=== PATIENT | female | born 1940 | race Caucasian/White ===

== ENCOUNTER 2020-06-07 15:08 | Emergency (ER) | payer MEDICARE, SELFPAY ==
[2020-06-07 15:24] VITALS: BP 164/89; PULSE 87; RESP 18; TEMP 36.3; O2SAT 99
--- NOTE | 2020-06-07 15:40 | ED.SKABFB ---
HPI - Skin/Abscess/Foreign Bdy General Chief complaint: Skin/Abscess/Foreign Body Stated complaint: rash face/numb Source: patient and RN notes reviewed Limitations: no limitations History of Present Illness HPI narrative: The patient, previously on several meds, presents with skin eruption. Patient states she been seen by dermatology in the past for removal of probable actinic keratosis along her maxilla. She now complains of a couple week history of itchy, pink scattered , mostly flat eruption on her right cheek going across her nasal bridge. 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 Symptoms are mild, worse with scratching;patient advised to follow-up with her city secretary. Related Data Home Medications Medication Instructions Recorded Confirmed clonazepam 1 mg TID PRN 06/07/20 06/07/20 pantoprazole 40 mg PO DAILY 06/07/20 06/07/20 paroxetine HCl 20 mg PO DAILY 06/07/20 06/07/20 simvastatin 40 mg DAILY 06/07/20 06/07/20 Allergies Allergy/AdvReac Type Severity Reaction Status Date / Time cefaclor Allergy Mild Verified 02/11/16 15:30 itraconazole Allergy Mild Verified 02/11/16 15:30 Penicillins Allergy Mild Verified 02/11/16 15:30 Sulfa (Sulfonamide Allergy Mild Verified 02/11/16 15:30 Antibiotics) peanut Allergy Unknown Verified 02/11/16 15:30 TERBINAFINE HCL Allergy Mild Uncoded 02/11/16 15:30 Review of Systems Review of Systems: Narrative: General/Constitutional: No weight loss,fever Eyes: N0: Redness, reports discharge Ears/Nose/Throat: No: Epistaxis,ear discharge Respiratory: Denies: Hemoptysis Gastrointestinal: No Vomiting, Bleeding-rectal Skin: No Lumps, REPORTS eruption Neurologic: No Focal Weakness,Sz Hematologic: Denies: Petechiae/Purpura Psychiatric: No: Suicida ideationl All Other Systems: Reviewed and Negative [facility] Social History Social History Gender identity (if verbalized by the patient): Female Exam Narrative: Exam Narrative: General Appearance: Well appearing, Conjunctiva clear Ears: External ear normal Skin: Warm, Dry; small pink essentially macules on nasal bridge, and right ZMC Nose: Normal nose,small developing AK at right, nasojugal groove Mouth/Throat: Normal appearing, Normal lips: Supple Respiratory: Airway patent, No respiratory distress Musculoskeletal: Full ROM Neurological: A&O x3, Normal affect Course Vital Signs Vital signs: Vital Signs Temperature 97.4 F L 06/07/20 15:24 Pulse Rate 87 06/07/20 15:24 Respiratory Rate 18 06/07/20 15:24 Blood Pressure 164/89 H 06/07/20 15:24 Pulse Oximetry 99 06/07/20 15:24 Temperature 97.4 F L 06/07/20 15:24 Pulse Rate 87 06/07/20 15:24 Respiratory Rate 18 06/07/20 15:24 Blood Pressure 164/89 H 06/07/20 15:24 Pulse Oximetry 99 06/07/20 15:24 Discharge Plan Discharge Clinical Impression: Folliculitis, Actinic keratosis, hx of, Pruritic condition Patient Disposition: Home, Self-Care Condition: Stable Instructions: Folliculitis (ED) Additional Instructions: See your prior city secretary as discussed Prescriptions: New doxycycline monohydrate 100 mg capsule 100 mg PO BID Qty: 14 RF: 0 No Action simvastatin 40 mg tablet 40 mg DAILY RF: 0 paroxetine HCl 20 mg tablet 20 mg PO DAILY RF: 0 pantoprazole 40 mg tablet,delayed release (DR/EC) 40 mg PO DAILY RF: 0 clonazepam 1 mg tablet 1 mg TID PRN (Reason: Anxiety) RF: 0 Follow-up/Referrals: UNKNOWN,DOCTOR [Primary Care Provider] -
== END 2020-06-07 15:53 | disposition home or self-care (01) ==
PROVIDERS: Emergency Provider Emergency Medicine
DX: L73.9 Follicular disorder, unspecified (principal); L57.0 Actinic keratosis
CPT/HCPCS: 99213; G0463

== ENCOUNTER 2020-12-13 17:20 | IRF | payer MEDICARE, SELFPAY ==
--- NOTE | ~2020-12-13 | CT_ITS ---
EXAMINATION: CT abdomen pelvis wo con DATE: 12/13/2020 21:07 INDICATION: Abnormal KUB and left lower quadrant abdominal pain. TECHNIQUE: Computed tomography (CT) of the abdomen and pelvis was performed without intravenous contr ast. Automated exposure control and iterative reconstruction technique were employed. The dose-length product was 321.00 mGy-cm. COMPARISON: KUB dated 12/13/2020 FINDINGS: Mild elevation of the right hemidiaphragm. Mild discoid atelectasis in the right middle lobe and ling pedro pablo and mild dependent atelectasis in the bilateral lower lobes. Tiny left pleural effusion. Heart si ze is normal. Atherosclerotic coronary artery calcific lesion. No pericardial effusion or pneumoperic ardium. There is pneumomediastinum primarily in the nondependent upper abdomen a portion of which loc ated into the left hepatic lobe accounts for the abnormal lucency seen on the prior KUB. This likely related to percutaneous gastrostomy tube placement the bulb which is located within the body of the s tomach which was reportedly placed 3 days prior. Liver, gallbladder, spleen, pancreas and bilateral a drenal glands are normal. At least partially obstructing 1.4 cm stone at the right ureteropelvic junc tion with mild right hydronephrosis. 2.3 cm cyst at the upper pole of the left kidney. No other uroli thiasis. Normal appendix. Marked sigmoid diverticulosis without adjacent from 3 change to suggest div erticulitis. No bowel obstruction. There is calcified atherosclerosis of the aorta and many of the ot her arteries. Bladder is normal. The uterus is not identified and has likely been surgically resected . Small nodular density in the subcutaneous fat at the left anterior pelvic wall likely representing an injection granuloma with additional small foci of mild stranding and subcutaneous gas likely relat ed to more recent injections. Mild thoracolumbar levocurvature. Moderate to severe lumbar spondylosis . IMPRESSION: 1. Small amount of free intraperitoneal gas likely related to reported recent placement of a percutan eous gastrostomy tube which constitute the abnormal lucency on the prior radiographs. 2. 1.4 cm at least partially obstructing stone at the right ureterovesicular junction with mild right hydronephrosis. 3. Marked sigmoid diverticulosis.. Reviewed, dictated and finalized at location A. IMPRESSION: 1. Small amount of free intraperitoneal gas likely related to reported recent p lacement of a percutaneous gastrostomy tube which constitute the abnormal lucen cy on the prior radiographs. 2. 1.4 cm at least partially obstructing stone at the right ureterovesicular ju nction with mild right hydronephrosis. 3. Marked sigmoid diverticulosis..
--- NOTE | ~2020-12-13 | XR_ITS ---
EXAMINATION: XR UGI water soluble wo kub EXAM DATE: 12/15/2020 11:39 INDICATION: Thru g-tube, document position of gastrostomy tube. TECHNIQUE: Omnipaque 350 upper GI examination was performed by radiologist Ilya Van M.D. through g astrostomy tube in place on patient arrival. Pulsed dose reduction fluoroscopy was used with fluorosc opic time of 0.2. The DAP for this procedure was 0.9 Gycm2. A total of 34 images obtained for the e xam. Total of 200 mL Omnipaque 350 solution injected. FINDINGS: Gastrostomy tube balloon anchor inflated with radiodense liquid seen on the barrel lathe operator outside image. 20 0 mL contrast was injected. A balloon is confirmed in the gastric body. Moderate amount of reflux was demonstrated during the examination. No stomach contour abnormality demonstrated. Jejunal fold patte rn was normal. IMPRESSION: 1. Gastrostomy tube in position. 2. Moderate gastroesophageal reflux. Reviewed, dictated and finalized at location A.
--- NOTE | ~2020-12-13 | XR_ITS ---
EXAMINATION: XR barium swallow modified EXAM DATE: 12/17/2020 10:39 INDICATION: Dysphagia. TECHNIQUE: Modified barium esophagram was performed by speech pathologist with radiologist Dr. Ilya Van present to administered fluoroscopy. Speech pathologist administered barium in varying consis tencies as per speech pathologist documentation. This was recorded on tape. There was total fluorosc opic time of 0.4. The DAP for this procedure was 0.2 Gycm2. A total of 1 images sent to PACS from t exam. FINDINGS: Oral stage: Delayed trigger. Pharyngeal phase: Reduced laryngeal closure, elevation. Laryngeal penetration: Demonstrated. Aspiration: Demonstrated. Laryngeal sensitivity: Absent. IMPRESSION: Aspiration demonstrated; nonoral feedings recommended. Reviewed, dictated and finalized at location A.
--- NOTE | ~2020-12-13 | XR_ITS ---
EXAMINATION: XR abdomen/kub 1V DATE: 12/13/2020 19:52 INDICATION: Left lower quadrant abdominal pain. TECHNIQUE: A supine view of the abdomen on 2 radiographs was obtained. COMPARISON: None. FINDINGS: Percutaneous gastrostomy tube bulb projects over the proximal body of the stomach. There are couple a djacent likely T-tack clips. 1.4 cm stone projecting over the region of the right ureteropelvic junct ion. No dilated loops of bowel to suggest obstruction. Vascular calcifications in the pelvis. Mild el evation of the right hemidiaphragm. There is an indeterminate crescentic region of lucency abutting t he inferior aspect of the heart which extends across the midline. Lung bases are otherwise clear. Hea rt size is normal. Mild thoracolumbar levoscoliosis with moderate lower lumbar spondylosis. IMPRESSION: 1. Indeterminate crescentic lucency projecting from left to right across the base of the heart which could represent pneumopericardium. Assess for further evaluation with either PA and lateral chest rad iograph or CT. Findings were discussed with Maria Luisa Estrada, the nurse caring for the patient, at 8:25 PM . 2. 1.4 cm right renal stone projecting over the right ureteropelvic junction. 3. Normal bowel gas pattern with percutaneous gastrostomy tube projecting over the proximal body of t he stomach. Reviewed, dictated and finalized at location A. IMPRESSION: 1. Indeterminate crescentic lucency projecting from left to right across the ba se of the heart which could represent pneumopericardium. Assess for further isis luation with either PA and lateral chest radiograph or CT. Findings were discus sed with Maria Luisa Estrada, the nurse caring for the patient, at 8:25 PM. 2. 1.4 cm right renal stone projecting over the right ureteropelvic junction. 3. Normal bowel gas pattern with percutaneous gastrostomy tube projecting over the proximal body of the stomach.
[2020-12-13 17:20] VITALS: BP 151/55; PULSE 88; RESP 18; TEMP 36.7; O2SAT 96; BMI 24.2
--- NOTE | 2020-12-13 18:23 | ADMGEN ---
Arrived via ambulance at 1720. No issues. This patient, Madeline Mcneil, was admitted to [facility] Room 223-02. Patient/family oriented to hospital policies and general routines including ID bracelet, bed and alarms, visiting hours, pain management, procedures, bathroom and other care routines, personal items, smoking policy, room service/diet, and visiting hours. Information on how to activate the Rapid Response Team has been discussed. Patient/Family are encouraged to report perceived risks to care and to ask questions if they do not understand what they are told or what they should do.
[2020-12-13] MEDS: HYDROcodone/acetaminophen (*CRX) 5-325 MG TABLET 1 TAB FEED TUBE (20:16)
[2020-12-13 20:30] VITALS: BMI 24.2
[2020-12-13] MEDS: CLINDAMYCIN HCL 150 MG CAP 300 MG FEED TUBE (21:41)
[2020-12-13 21:50] VITALS: BP 145/61; PULSE 88; RESP 18; TEMP 36.4; O2SAT 95
[2020-12-14 05:05] LABS: Basophils Absolute Auto 0.1 K/mm3 (0.0-0.1); Basophils Percent Auto 0.7 % (0.2-1.2); Eosinophils Absolute Auto 0.5 K/mm3 (0-0.3); Eosinophils Percent Auto 3.9 % (0-4.4); Hemoglobin 11.6 g/dL (12.0-15.0); Immature Granulocyte Absolute 0.09 K/mm3 (0.00-0.031); Immature Granulocyte Percent A 0.8 % (0-0.5); Lymphocytes Absolute Auto 0.92 K/mm3 (0.9-3.2); Lymphocytes Percent Auto 7.8 % (18.3-44.2); Mean Corpuscular HGB Conc 34.1 g/dl (32-36); Mean Corpuscular Hemoglobin 29.4 pg (26-34); Mean Corpuscular Volume 86.3 fl (80-100); Mean Platelet Volume 10.4 fl (7.4-10.4); Monocytes Absolute Auto 1.3 K/mm3 (0.1-0.6); Monocytes Percent Auto 11.2 % (2.6-8.5); Neutrophils Absolute Auto 8.9 K/mm3 (1.3-6.7); Neutrophils Percent Auto 75.6 % (45.5-73.1); Platelet Count Result 322 k/mm3 (150-375); Red Blood Count 3.94 M/mm3 (4.2-5.4); Red Cell Distribution Width 13.9 % (11.5-14.5); White Blood Count 11.7 K/mm3 (4.5-10.0)
[2020-12-14] MEDS: HYDROcodone/acetaminophen (*CRX) 5-325 MG TABLET 1 TAB FEED TUBE ×2 (05:08→14:53)
[2020-12-14 05:14] LABS: Alanine Aminotransferase 311 U/L (4-35); Albumin Level 3.1 g/dL (3.5-5.1); Alkaline Phosphatase 287 U/L (38-126); Anion Gap 8 mmol/L (8-16); Aspartate Amino Transferase 304 U/L (14-36); Bilirubin,Total 0.3 mg/dL (0.2-1.3); Blood Urea Nitrogen 23 mg/dL (7-17); Calcium 8.7 mg/dL (8.4-10.2); Carbon Dioxide 26 mmol/L (22-30); Chloride 100 mmol/L (98-107); Cholesterol 88 mg/dL (0-200); Estimated CRCL calculation 27 ml/min; Estimated Glomerular Filt Rate 43; Glucose 115 mg/dL (65-105); HDL Direct 23 mg/dL; Sodium 134 mmol/L (137-145); Triglycerides 118 mg/dL (<150)
[2020-12-14 05:25] LABS: LDL Cholesterol Direct 43 mg/dL
[2020-12-14 05:59] VITALS: BP 136/56; PULSE 80; RESP 18; TEMP 36.6; O2SAT 96
[2020-12-14] MEDS: CLINDAMYCIN HCL 150 MG CAP 300 MG FEED TUBE ×3 (06:11→23:04)
[2020-12-14] MEDS: LANSOPRAZOLE ORAL SUSP 30 MG/10 ML ORAL.SUSP FEED TUBE ×2 (06:17→18:17)
--- NOTE | 2020-12-14 09:10 | WPDNEURORHBP ---
Subjective Date/time seen: 12/14/20 09:10 Interval history: HISTORY OF PRESENT ILLNESS: The patient's primary rehab impairment category is 0 1 stroke The etiologic diagnosis is right MCA infarct I saw this patient [id number] on 12/14/2020 The patient is a 80-year-old female with prior medical history of multiple strokes consisting of left frontal ischemic stroke in 2018 on aspirin daily who had sudden onset of left facial droop, left-sided weakness and aphasia on 12/01/20. Patient was transferred to [facility] on 12/01/2020. Upon arrival patient's blood pressure was 156/87 and patient was tachycardic heart rate of 104. NIHSS was 12. Workup: CTA showed no LV 0 or hemodynamically significant stenosis. MRI of the brain demonstrated acute to subacute infarcts in the right frontal lobe which included the precentral gyrus in the right MCA territory. Most likely etiology is cardioembolic versus less likely thromboembolic. CT CAP demonstrate mild stranding around right ureter possibly ureteritis or periureteral hematoma. TTE was positive PFO with an ejection fraction of 61%.LE Doppler negative. Hospital course: The patient was bolused with tPA on 12/01/2020 and then transferred to [facility]. Patient was noted to have anam hematuria. The patient was started on ceftriaxone. Urine cultures showed no significant growth and antibiotics were discontinued. On 12/09/2020 patient developed aspiration pneumonia and was placed on clindamycin. On 12/07/2020 patient was placed with a G-tube due to dysphagia. Patient revealed left-sided weakness impaired balance and are 3 a and dysphagia. Patient was placed on atorvastatin and discontinued simvastatin. A loop recorder was placed prior to discharge. Patient required acute rehabilitation COVID negative on 12/13/2020. Patient did not travel outside the [place] or had contact with anyone with COVID. Patient presented with no signs or symptoms of COVID. Therapy was initiated at the acute care facility and the patient transferred to us from [facility] on 12/13/2020 FALLS OR SURGERIES: The patient has had a G tube placed during this admission.She had [no] falls in the past year. PRIOR LEVEL OF FUNCTION: Eating was [INDEPENDENT] Oral Care was [INDEPENDENT] Toileting Hygiene was [INDEPENDENT] Shower/Bathing was [INDEPENDENT] Upper Body Dressing was [INDEPENDENT] Lower Body Dressing was [INDEPENDENT] Donning/[place]irie Footwear was [INDEPENDENT] Rolling Left and Right was [INDEPENDENT] Sit to Lying was [INDEPENDENT] Lying to Sitting was [INDEPENDENT] Sit to Stand was [INDEPENDENT] Bed to Chair Transfers was [INDEPENDENT] Toilet Transfers was [INDEPENDENT] Walking was [INDEPENDENT] [>500 feet] with [NO DEVICE] Wheelchair Mobility was [NOT APPLICABLE PRIOR TO ADMISSION] Stairs were [INDEPENDENT] CURRENT LEVEL OF FUNCTION: Eating was Dependent Oral Care was independent Toileting Hygiene was partial to mod assist Shower/Bathing was partial to mod assist Upper Body Dressing was supervision or touching assistance Lower Body Dressing was partial to mod assist Donning/[place] Footwear was partial to mod assist Rolling Left and Right was supervision or touching his Sit to Lying was supervision or touching assistance Lying to Sitting was supervision or touching assistance Sit to Stand was partial to moderate assist Bed to Chair Transfers were partial to moderate assist Toilet Transfers were partial to moderate assist Walking was 90 ft with partial to moderate assist without device Wheelchair Mobility was not tested Stairs were not tested patient is alert and oriented x3 with global aphasia. Patient follows one-step commands consistently. Right gaze preference and cues required to attend to left side. GOALS: Our therapists will evaluate the patient and establish the goals. However, upon pre-admission screening, the expected goals were to
[2020-12-14] MEDS: ASPIRIN 325 MG TABLET FEED TUBE (10:01)
[2020-12-14] MEDS: ATORVASTATIN 40 MG TABLET FEED TUBE (10:01)
[2020-12-14] MEDS: amLODIPine BESYLATE 2.5 MG TABLET FEED TUBE (10:01)
[2020-12-14] MEDS: FLUoxetine HCL 10 MG CAPSULE FEED TUBE (10:02)
[2020-12-14] MEDS: MULTIVIT W/ IRON, MINERALS 15 ML LIQUID (*BKC) FEED TUBE (10:02)
[2020-12-14 11:34] VITALS: BMI 24.2
[2020-12-14 12:03] LABS: Glucose Point of Care 136 mg/dl (65-105)
--- NOTE | 2020-12-14 12:33 | WPDREHABHP ---
H&P: HPI History of Present Illness Date/Time: 12/14/20 12:33 Chief Complaint: CVA Narrative: Date/time seen: 12/14/20 09:10 Interval history: HISTORY OF PRESENT ILLNESS: The patient's primary rehab impairment category is 0 1 stroke The etiologic diagnosis is right MCA infarct I saw this patient [id number] on 12/14/2020 The patient is a 80-year-old female with prior medical history of multiple strokes consisting of left frontal ischemic stroke in 2018 on aspirin daily who had sudden onset of left facial droop, left-sided weakness and aphasia on 12/01/20. Patient was transferred to [facility] on 12/01/2020. Upon arrival patient's blood pressure was 156/87 and patient was tachycardic heart rate of 104. NIHSS was 12. Workup: CTA showed no LV 0 or hemodynamically significant stenosis. MRI of the brain demonstrated acute to subacute infarcts in the right frontal lobe which included the precentral gyrus in the right MCA territory. Most likely etiology is cardioembolic versus less likely thromboembolic. CT CAP demonstrate mild stranding around right ureter possibly ureteritis or periureteral hematoma. TTE was positive PFO with an ejection fraction of 61%.LE Doppler negative. Hospital course: The patient was bolused with tPA on 12/01/2020 and then transferred to [facility]. Patient was noted to have anam hematuria. The patient was started on ceftriaxone. Urine cultures showed no significant growth and antibiotics were discontinued. On 12/09/2020 patient developed aspiration pneumonia and was placed on clindamycin. On 12/07/2020 patient was placed with a G-tube due to dysphagia. Patient revealed left-sided weakness impaired balance and are 3 a and dysphagia. Patient was placed on atorvastatin and discontinued simvastatin. A loop recorder was placed prior to discharge. Patient required acute rehabilitation COVID negative on 12/13/2020. Patient did not travel outside the [place] or had contact with anyone with COVID. Patient presented with no signs or symptoms of COVID. Therapy was initiated at the acute care facility and the patient transferred to us from [facility] on 12/13/2020 FALLS OR SURGERIES: The patient has had a G tube placed during this admission.She had [no] falls in the past year. PRIOR LEVEL OF FUNCTION: Eating was [INDEPENDENT] Oral Care was [INDEPENDENT] Toileting Hygiene was [INDEPENDENT] Shower/Bathing was [INDEPENDENT] Upper Body Dressing was [INDEPENDENT] Lower Body Dressing was [INDEPENDENT] Donning/[place] Footwear was [INDEPENDENT] Rolling Left and Right was [INDEPENDENT] Sit to Lying was [INDEPENDENT] Lying to Sitting was [INDEPENDENT] Sit to Stand was [INDEPENDENT] Bed to Chair Transfers was [INDEPENDENT] Toilet Transfers was [INDEPENDENT] Walking was [INDEPENDENT] [>500 feet] with [NO DEVICE] Wheelchair Mobility was [NOT APPLICABLE PRIOR TO ADMISSION] Stairs were [INDEPENDENT] CURRENT LEVEL OF FUNCTION: Eating was Dependent Oral Care was independent Toileting Hygiene was partial to mod assist Shower/Bathing was partial to mod assist Upper Body Dressing was supervision or touching assistance Lower Body Dressing was partial to mod assist Donning/[place] Footwear was partial to mod assist Rolling Left and Right was supervision or touching his Sit to Lying was supervision or touching assistance Lying to Sitting was supervision or touching assistance Sit to Stand was partial to moderate assist Bed to Chair Transfers were partial to moderate assist Toilet Transfers were partial to moderate assist Walking was 90 ft with partial to moderate assist without device Wheelchair Mobility was not tested Stairs were not tested patient is alert and oriented x3 with global aphasia. Patient follows one-step commands consistently. Right gaze preference and cues required to attend to left side. GOALS: Our therapists will evaluate the patient and es
[2020-12-14 14:00] VITALS: BP 131/59; PULSE 84; RESP 18; TEMP 36.1; O2SAT 97
--- NOTE | 2020-12-14 14:31 | RPD ---
INDIVIDUALIZED PLAN OF CARE FOR Madeline Mcneil Brief Synthesis of Pre-Admission Screen, Post-Admission Evaluation and Therapy Evaluations: The patient presents to rehab with a right MCA infarct. Comorbidities include stage 3 chronic kidney disease, hyperparathyroidism due to renal insufficiency, hypertension, recurrent major depression, vitamin D deficiency, nephrolithiasis, hypercalcemia, abnormal UA, spinal stenosis, proteinuria, left facial droop, left sided weakness, aphasia, SOB, and pain. The complexity of the patient's medical management, nursing, and therapy needs require an inpatient rehab hospital stay with a physician-led interdisciplinary team approach. The patient?s needs will be best met in an intensive program vs. at a lower level of care. The patient requires physician services for medical oversight, and coordination of care. Emotional needs will be monitored as depression is a common sequelae of stroke. The patient needs physician monitoring and treatment of tachycardia, hypertension, monitoring for adverse reactions to new medications, monitoring of infection, and pain control. The patient requires nursing services for frequent neuro checks, anticoagulation therapy, medication management and education, pressure relief and skin care management, monitoring of labs, G-tube feeding, and fall/safety precautions. Deficits include:ADLs, Balance, Endurance, Family Training/Education, Mobility, Pain Management, ROM, Safety, Speech, Strength, Swallowing, and Transfers. Director Loss Prevention/Case Management for: Discharge Planning and Patient/Family Counseling Physical Therapy: 5 days per week for 60 minutes. Treatments may include: Therapeutic Exercise, Gait Training, Neuromuscular Re-education, Transfer Training, Community Reintegration, Bed Mobility, Patient/Family Education, Wheelchair Mobility Group Therapy/Concurrent Therapy Rationales: -Improve attention span during functional activities in a distracted environment. -Enhance problem solving and/or adequate judgment skills during functional activities in a distracted environment. -Promote increased safety awareness in a distracted environment to reduce fall risk with functional tasks, transfers, and ambulation to allow a more safe, self-sufficient return to the home environment. -Improve dynamic balance skills to promote safety and independence with functional activities in a distracted environment for maximum gain. Occupational Therapy: 5 days per week for 60 minutes. Treatments may include: Therapeutic Exercise, Therapeutic Activity, Cognitive Training, Self-Care Transfer Training, Community Reintegration, Home Management, Patient/Family Education, Wheelchair Mobility Training, Energy Conservation Training Group Therapy/Concurrent Therapy Rationales: -Allow therapist to observe and teach generalization and carry-over of skills learned in individual therapy. -Enhance problem solving and sequencing skills during therapeutic activities in a distracted environment. -Promote increased safety awareness in a realistic setting to reduce fall risk with functional tasks due to visual and verbal distractions. -Increase functional level with ADLs, ADL transfers and use of adaptive equipment through therapeutic activities with others while promoting safety to allow a more safe, self-sufficient return home. Speech Therapy: 5 days per week for 60 minutes. Treatments may include: Dysphasia Therapy, Speech/Language/Communication Therapy, Cognitive Training, Patient/Family Education Group Therapy/Concurrent Therapy - Rationale: -Allow therapist to observe and teach generalization and carry-over of skills learned in individual therapy. -Improve comprehension skills with complex or abstract ideas through discussion in a realistic setting. -Enhance problem solving skills with complex issues during activities in a distracted environment. -Promote increased memory skills and concentration in a distracted environment for a safe t
[2020-12-14 21:55] VITALS: BP 144/57; PULSE 79; RESP 16; TEMP 36.9; O2SAT 97
[2020-12-15] MEDS: LANSOPRAZOLE ORAL SUSP 30 MG/10 ML ORAL.SUSP FEED TUBE ×2 (05:00→16:52)
[2020-12-15 05:42] VITALS: BP 152/71; PULSE 92; RESP 18; TEMP 37; O2SAT 96
[2020-12-15 06:42] LABS: Glucose Point of Care 111 mg/dl (65-105)
[2020-12-15] MEDS: MULTIVIT W/ IRON, MINERALS 15 ML LIQUID (*BKC) FEED TUBE (08:03)
[2020-12-15] MEDS: FLUoxetine HCL 10 MG CAPSULE FEED TUBE (08:04)
[2020-12-15] MEDS: ATORVASTATIN 40 MG TABLET FEED TUBE (08:04)
[2020-12-15] MEDS: amLODIPine BESYLATE 2.5 MG TABLET FEED TUBE (08:04)
[2020-12-15] MEDS: HYDROcodone/acetaminophen (*CRX) 5-325 MG TABLET 1 TAB FEED TUBE ×3 (08:04→23:50)
[2020-12-15] MEDS: ASPIRIN 325 MG TABLET FEED TUBE (08:04)
--- NOTE | 2020-12-15 11:03 | WPDGICN ---
Assessment and Plan Assessment and plan (1) G tube feedings: Code(s): Z93.1 - Gastrostomy status Status: Acute (2) Gastrostomy, acute management: Code(s): Z43.1 - Encounter for attention to gastrostomy Status: Acute Assessment and Plan: Patient has pain after gastrostomy tube was placed 1 week ago at [facility] Radiology Department. Old records are reviewed. It appears that the 2 button - like sutures are self absorbing and will dissolve in time on their own. Patient does have an additional suture that keeps the external bumper of the G-tube in place. There is a 10cc internal bumper described. The CT scan performed at our institution reveals some evidence of free air. This is likely related to the procedure. But a Gastrografin study through the G-tube will be obtained to document that it is in good position. The G-tube itself should remain in place for several months if at all possible and would be hesitant to replace it in the initial 2 months. This would be to allow fistula tract to form between the skin in the stomach itself. Patient may have some tenderness at the suture retaining the external bumper period and this should initially be treated conservatively thank (3) Aphasia complicating stroke: Status: Acute (4) Dysphagia: Code(s): R13.10 - Dysphagia, unspecified Status: Acute (5) Abdominal pain: Code(s): R10.9 - Unspecified abdominal pain Status: Acute (6) CVA (cerebral vascular accident): Code(s): I63.9 - Cerebral infarction, unspecified Status: Acute GI Consult Note Consult date/time: 12/15/20 11:03 HPI: Madeline Mcneil is a 80 year old female I am asked to see at the request of the rehab service. Patient has a history of recent CVA. She has had multiple prior strokes. Most recent stroke includes is sudden onset of left-sided weakness and facial droop along with aphasia that began on 12/01/2020. Patient was transferred to [facility] in treated with tPA. She continued to have difficulty swallowing and G-tube was placed through the Radiology Department on 12/07/2020. Patient subsequently complains of pain at the G-tube site. This was noted on discharge papers from [facility] period and continues at our institution. The tube functions properly. However patient notices discomfort at this area. A CT scan was performed at [facility] with free air noted attributed to this recent procedure. Small kidney stone was identified as well. Review of Systems Review of Systems: All systems reviewed & are unremarkable except as noted in HPI and below PMFSH Past Medical History Medical History (Updated 12/15/20 @ 11:08 by Naif Decker MD) CVA (cerebral vascular accident) Depression Hypercalcemia Hyperparathyroidism due to renal insufficiency Hypertension Nephrolithiasis Spinal stenosis Stage III chronic kidney disease Vitamin D deficiency Surgical History Surgical History (Updated 12/14/20 @ 12:37 by Lili Sanford DO) G tube feedings Family History Family History (Updated 12/13/20 @ 20:54 by Dmitriy Pearce RN) Sibling Cystic fibrosis Father Colon cancer Mother Dementia Ovarian cancer Social History Social History (Updated 12/14/20 @ 12:38 by Lili Sanford DO) Social History: patient lives with her spouse in a 1 level home with a basement. There are 5 steps to enter. The patient was completely prior to admission with no assistive device. The the is retired and is able to provide caregiver assistance. Smoking status: Never smoker Second hand tobacco smoke exposure: No Alcohol intake: never Substance use: never Gender identity (if verbalized by the patient): Female Spiritual care concerns: No Meds Home Medications and Allergies Home Medications Medication Instructions Recorded Confirmed Type pantoprazole 40 mg PO BID 06/07/20 12/13/20 History amlodipine 2.5 mg PO DAILY
[2020-12-15 14:00] VITALS: BP 136/55; PULSE 88; RESP 18; TEMP 36.7; O2SAT 96
--- NOTE | 2020-12-15 15:32 | WPDNEURORHBP ---
Subjective Date/time seen: 12/15/20 15:32 Interval history: The patient's primary rehab impairment category is 0 1 stroke The etiologic diagnosis is right MCA infarct The patient is a 80-year-old female with prior medical history of multiple strokes consisting of left frontal ischemic stroke in 2018 on aspirin daily who had sudden onset of left facial droop, left-sided weakness and aphasia on 12/01/20. Patient was transferred to [facility] on 12/01/2020. Upon arrival patient's blood pressure was 156/87 and patient was tachycardic with heart rate of 104. NIHSS was 12. Workup: CTA showed no LV0 or hemodynamically significant stenosis. MRI of the brain demonstrated acute to subacute infarcts in the right frontal lobe which included the precentral gyrus in the right MCA territory. Most likely etiology is cardioembolic versus less likely thromboembolic. CT CAP demonstrate mild stranding around right ureter possibly ureteritis or periureteral hematoma. TTE was positive PFO with an ejection fraction of 61%.LE Doppler negative. Hospital course: The patient was given tPA on 12/01/2020 and then transferred to [facility]. Patient was noted to have anam hematuria. The patient was started on ceftriaxone. Urine cultures showed no significant growth and antibiotics were discontinued. On 12/09/2020 patient developed aspiration pneumonia and was placed on clindamycin. On 12/07/2020 patient was placed with a G-tube due to dysphagia. Patient revealed left-sided weakness impaired balance and are 3 a and dysphagia. Patient was placed on atorvastatin and discontinued simvastatin. A loop recorder was placed prior to discharge. Patient required acute rehabilitation. 12/15/20 Ongoing G tube pain with surrounding abdominal pain. Dr Decker consulted. Patient also does not want gait belt. New information gathered. is a double lung transplant. Both sons of Cystic fibrosis. Review of Systems Review of Systems: All systems reviewed & are unremarkable except as noted in HPI and below Functional Status Ambulation Ability Ability to Ambulate 10 Feet: Contact Guard Ability to Ambulate 50 Feet With 2 Turns: Contact Guard Ambulation Assistive Devices: Walker, Wheeled Exam Narrative: Exam Narrative: Patient is seen this morning while in bed. Patient points that G-tube is painful. extraocular muscles are intact heart rate and rhythm regular lungs are essentially clear. Abdomen are reveals G-tube present pain is noted on palpation of abdomen. Objective Data Vital Signs Vital Signs: Vital Signs - 24 hr 12/14/20 21:55 12/15/20 05:42 12/15/20 14:00 Temperature 36.9 C 37.0 C 36.7 C Pulse Rate 79 92 88 Respiratory Rate 16 18 18 Blood Pressure 144/57 H 152/71 H 136/55 L Pulse Oximetry 97 96 96 Meds/Results Medications: Active Medications Generic Name Dose Route Start Last Admin Trade Name Freq PRN Reason Stop Dose Admin Acetaminophen 1,000 mg 12/13/20 19:32 Acetaminophen Elixir 325 Mg/10.15 Ml Udc FEED TUBE Q6H PRN Mild Pain (1-3) or Fever Hydrocodone Bitart/Acetaminophen 1 tab 12/13/20 19:32 12/15/20 08:04 Hydrocodone/Acetaminophen (*Crx) 5-325 Mg Tablet FEED TUBE 1 tab Q4H PRN Administration Pain Rated 4-6 Amlodipine Besylate 2.5 mg 12/14/20 09:00 12/15/20 08:04 Amlodipine Besylate 2.5 Mg Tablet FEED TUBE 2.5 mg DAILY OLIVER Administration Aspirin 325 mg 12/14/20 09:00 12/15/20 08:04 Aspirin 325 Mg Tablet FEED TUBE 325 mg DAILY OLIVER Administration Atorvastatin Calcium 40 mg 12/14/20 09:00 12/15/20 08:04 Atorvastatin 40 Mg Tablet FEED TUBE 40 mg DAILY OLIVER Administration Bisacodyl 5 mg 12/14/20 10:08 Bisacodyl 5 Mg Tablet Ec PO QAM PRN Constipation Fluoxetine HCl 10 mg 12/14/20 09:00 12/15/20 08:04 Fluoxetine Hcl 10 Mg Capsule FEED TUBE 10 mg QAM OLIVER Administration Lansoprazole 30 mg 12/14/20 06:30
--- NOTE | 2020-12-15 16:19 | PC.NURSE ---
pt refused 11 am tube feeding due to leaving unit for test. upon return, patient was working with therapy and became nauseated. Pt had an emesis of approximately 300 mL of liquid. Pt was cleaned up again by therapy. Spoke with patient again and she did not want feeding at that time.
[2020-12-15 21:27] VITALS: BP 140/58; PULSE 91; RESP 16; TEMP 36.5; O2SAT 96
[2020-12-16] MEDS: HYDROcodone/acetaminophen (*CRX) 5-325 MG TABLET 1 TAB FEED TUBE (05:29)
[2020-12-16] MEDS: LANSOPRAZOLE ORAL SUSP 30 MG/10 ML ORAL.SUSP FEED TUBE ×2 (05:30→17:16)
[2020-12-16 05:52] VITALS: BP 134/51; PULSE 84; RESP 16; TEMP 36.4; O2SAT 94
--- NOTE | 2020-12-16 08:59 | WPDGIPROGNO ---
Progress Note: A&P Assessment and Plan (1) Gastrostomy, acute management: Code(s): Z43.1 - Encounter for attention to gastrostomy Status: Acute Assessment and Plan: Gastrostomy tube appears to be in good position. Gastrografin study through the G-tube reveals it to be in good position within the body of the stomach. CT scan was unremarkable as well G-tube in good place. Free air likely related to procedure not pathologic at this point. Button type sutures are absorb a bowl in should be left in place. At some point the stitch holding the external bumper of the G-tube can be removed. Continue tube feedings as previously prescribed at this point. Local care to PEG tube site with Betadine or hydrogen peroxide advised intermittently. (2) CVA (cerebral vascular accident): Code(s): I63.9 - Cerebral infarction, unspecified Status: Acute (3) Dysphagia: Code(s): R13.10 - Dysphagia, unspecified Status: Acute (4) Aphasia complicating stroke: Status: Acute Subjective Date/time seen: 12/16/20 08:59 Patient is more comfortable this morning. Minimal discomfort at PEG tube site noted this morning. Tube feedings are progressing without difficulty. Review of Systems Review of Systems: All systems reviewed & are unremarkable except as noted in HPI and below Exam Narrative: Exam Narrative: Physical exam patient remains aphasic with dysphagia. Abdomen bowel sounds are present soft mild tenderness PEG tube site. Appears somewhat related to suture old the external bumper. Objective Data Vital Signs Vital Signs: Vital Signs - 24 hr 12/15/20 14:00 12/15/20 21:27 12/16/20 05:52 Temperature 98.1 F 97.7 F 97.6 F Pulse Rate 88 91 84 Respiratory Rate 18 16 16 Blood Pressure 136/55 L 140/58 L 134/51 L Pulse Oximetry 96 96 94 Meds/Results Medications: Active Medications Generic Name Dose Route Start Last Admin Trade Name Freq PRN Reason Stop Dose Admin Acetaminophen 1,000 mg 12/13/20 19:32 Acetaminophen Elixir 325 Mg/10.15 Ml Udc FEED TUBE Q6H PRN Mild Pain (1-3) or Fever Hydrocodone Bitart/Acetaminophen 1 tab 12/13/20 19:32 12/16/20 05:29 Hydrocodone/Acetaminophen (*Crx) 5-325 Mg Tablet FEED TUBE 1 tab Q4H PRN Administration Pain Rated 4-6 Amlodipine Besylate 2.5 mg 12/14/20 09:00 12/15/20 08:04 Amlodipine Besylate 2.5 Mg Tablet FEED TUBE 2.5 mg DAILY OLIVER Administration Aspirin 325 mg 12/14/20 09:00 12/15/20 08:04 Aspirin 325 Mg Tablet FEED TUBE 325 mg DAILY OLIVER Administration Atorvastatin Calcium 40 mg 12/14/20 09:00 12/15/20 08:04 Atorvastatin 40 Mg Tablet FEED TUBE 40 mg DAILY OLIVER Administration Bisacodyl 5 mg 12/14/20 10:08 Bisacodyl 5 Mg Tablet Ec PO QAM PRN Constipation Fluoxetine HCl 10 mg 12/14/20 09:00 12/15/20 08:04 Fluoxetine Hcl 10 Mg Capsule FEED TUBE 10 mg QAM OLIVER Administration Lansoprazole 30 mg 12/14/20 06:30 12/16/20 05:30 Lansoprazole Oral Susp 30 Mg/10 Ml Oral.Susp FEED TUBE 30 mg BIDAC OLIVER Administration Methocarbamol 500 mg 12/14/20 20:18 Methocarbamol 500 Mg Tablet PO TID PRN Spasms Multivitamins/Minerals 15 ml 12/14/20 09:00 12/15/20 08:03 Multivit W/ Iron, Minerals 15 Ml Liquid (*Bkc) FEED TUBE 15 ml QAM OLIVER Administration Radiology Results: ITS Impressions Abdomen X-Ray 12/13/20 19:53 IMPRESSION: 1. Indeterminate crescentic lucency projecting from left to right across the base of the heart which could represent pneumopericardium. Assess for further evaluation with either PA and lateral chest radiograph or CT. Findings were discussed with Maria Luisa Estrada, the nurse caring for the patient, at 8:25 PM. 2. 1.4 cm right renal stone projecting over the right ureteropelvic junction. 3. Normal bowel gas pattern with percutaneous gastrostomy tube projecting over the proximal body of the stomach. Abdomen/Pelv
[2020-12-16] MEDS: FLUoxetine HCL 10 MG CAPSULE FEED TUBE (09:34)
[2020-12-16] MEDS: ATORVASTATIN 40 MG TABLET FEED TUBE (09:34)
[2020-12-16] MEDS: amLODIPine BESYLATE 2.5 MG TABLET FEED TUBE (09:34)
[2020-12-16] MEDS: MULTIVIT W/ IRON, MINERALS 15 ML LIQUID (*BKC) FEED TUBE (09:34)
[2020-12-16] MEDS: ASPIRIN 325 MG TABLET FEED TUBE (09:34)
[2020-12-16 11:46] LABS: Anion Gap 10 mmol/L (8-16); Blood Urea Nitrogen 24 mg/dL (7-17); Calcium 8.8 mg/dL (8.4-10.2); Carbon Dioxide 25 mmol/L (22-30); Chloride 97 mmol/L (98-107); Estimated CRCL calculation 30 ml/min; Estimated Glomerular Filt Rate 48; Glucose 113 mg/dL (65-105); Potassium 4.3 mmol/L (3.4-5.0); Sodium 132 mmol/L (137-145)
--- NOTE | 2020-12-16 12:44 | WPDNEURORHBP ---
Subjective Date/time seen: 12/16/20 12:44 Interval history: The patient's primary rehab impairment category is 0 1 stroke The etiologic diagnosis is right MCA infarct The patient is a 80-year-old female with prior medical history of multiple strokes consisting of left frontal ischemic stroke in 2018 on aspirin daily who had sudden onset of left facial droop, left-sided weakness and aphasia on 12/01/20. Patient was transferred to [facility] on 12/01/2020. Upon arrival patient's blood pressure was 156/87 and patient was tachycardic with heart rate of 104. NIHSS was 12. Workup: CTA showed no LV0 or hemodynamically significant stenosis. MRI of the brain demonstrated acute to subacute infarcts in the right frontal lobe which included the precentral gyrus in the right MCA territory. Most likely etiology is cardioembolic versus less likely thromboembolic. CT CAP demonstrate mild stranding around right ureter possibly ureteritis or periureteral hematoma. TTE was positive PFO with an ejection fraction of 61%.LE Doppler negative. Hospital course: The patient was given tPA on 12/01/2020 and then transferred to [facility]. Patient was noted to have anam hematuria. The patient was started on ceftriaxone. Urine cultures showed no significant growth and antibiotics were discontinued. On 12/09/2020 patient developed aspiration pneumonia and was placed on clindamycin. On 12/07/2020 patient was placed with a G-tube due to dysphagia. Patient revealed left-sided weakness impaired balance and are 3 a and dysphagia. Patient was placed on atorvastatin and discontinued simvastatin. A loop recorder was placed prior to discharge. Patient required acute rehabilitation. 12/15/20 Ongoing G tube pain with surrounding abdominal pain. Dr Decker consulted. Patient also does not want gait belt. New information gathered. is a double lung transplant. Both sons of Cystic fibrosis. 12/16/[address] Decker's consultation. Abdominal pain is better today. Spoke with who wishes help with the loop recorder every Saturday. is receptive to learn tube feeding education and training. Endurance is improving. Review of Systems Review of Systems: All systems reviewed & are unremarkable except as noted in HPI and below Functional Status Ambulation Ability Ability to Ambulate 10 Feet: Contact Guard Ability to Ambulate 50 Feet With 2 Turns: Contact Guard Ability to Ambulate 150 Feet: Contact Guard Ambulation Assistive Devices: Walker, Wheeled Exam Narrative: Exam Narrative: Madeline uses hand signals to communicate to examine her. Patient states that abdominal pain is improving. Extraocular muscles are intact Heart rate and rhythm regular Lungs are essentially clear. Abdomen are reveals G-tube present. Patient is performing well with therapy. Objective Data Vital Signs Vital Signs: Vital Signs - 24 hr 12/15/20 14:00 12/15/20 21:27 12/16/20 05:52 Temperature 36.7 C 36.5 C 36.4 C Pulse Rate 88 91 84 Respiratory Rate 18 16 16 Blood Pressure 136/55 L 140/58 L 134/51 L Pulse Oximetry 96 96 94 Meds/Results Medications: Active Medications Generic Name Dose Route Start Last Admin Trade Name Freq PRN Reason Stop Dose Admin Acetaminophen 1,000 mg 12/13/20 19:32 Acetaminophen Elixir 325 Mg/10.15 Ml Udc FEED TUBE Q6H PRN Mild Pain (1-3) or Fever Hydrocodone Bitart/Acetaminophen 1 tab 12/13/20 19:32 12/16/20 05:29 Hydrocodone/Acetaminophen (*Crx) 5-325 Mg Tablet FEED TUBE 1 tab Q4H PRN Administration Pain Rated 4-6 Amlodipine Besylate 2.5 mg 12/14/20 09:00 12/16/20 09:34 Amlodipine Besylate 2.5 Mg Tablet FEED TUBE 2.5 mg DAILY OLIVER Administration Aspirin 325 mg 12/14/20 09:00 12/16/20 09:34 Aspirin 325 Mg Tablet FEED TUBE 325 mg DAILY OLIVER Administration Atorvastatin Calcium 40 mg 12/14/20 09:00 12/16/20 09:34 Atorvastatin 40 Mg Tablet FEED
--- NOTE | 2020-12-16 13:10 | PCNFU ---
Addendum entered by Nicki Wynen RD, KRISN 12/16/20 14:06: Spoke with nursing today regarding Na 132. Plans to decrease free water flush to 80 ml 5 x daily. Original Note: Nutrition Follow-Up Complete: Difficulty swallowing related to stroke as evidenced by NPO status, need for tube feedings. goal: Patient to tolerate tube feedings Progressing towards goal. We will continue current goal. Pt current nutrition is Osmolite 1.5 200 ml bolus q 4 hours/ 5 x daily. Last recorded weight is 60.1 kg, no new weight to report. Bowel Motility:+BM reported 12/15-soft Labs Reviewed: Na 132,GFR 48,BUN 24,Cr 1.0,Glu 113 Meds Noted:Prevacid,Clay,Norvasc,Lipitor, MVI. Additional Notes: Nutrition follow up. Patient current with tube feedings of Osmolite 1.5 bolus feedings 200mL every 4 hours x 5 feedings per day which will provide 1500kcal, 63g protein and 762mL free water. 100 ml free water flush q 4 hours. GI is following. Tube feeding remain appropriate. Monitoring: Follow up every Saturday/Saturday.
[2020-12-16 14:00] VITALS: BP 140/63; PULSE 86; RESP 18; TEMP 36.8; O2SAT 95
--- NOTE | 2020-12-16 14:28 | PCSTNOTE ---
Patient received an order to complete a Modified Barium Swallow study however this therapist had seen patient on two separate occasions for direct Speech Therapy and by the end of the second session, patient expressed fatigue and also that her throat was sore, as determined through yes/no questions by this therapist. This therapist judged that afternoon would not be a good time for patient to undergo MBS as a result. It is recommended that patient undergo MBS by late morning when refreshed and oral muscles are prepared to accept oral presentations.
[2020-12-16] MEDS: ACETAMINOPHEN 500 MG TABLET 1000 MG PO (17:14)
[2020-12-16 20:20] VITALS: PULSE 87; RESP 16; O2SAT 94
[2020-12-16 21:51] VITALS: BP 155/57; PULSE 87; RESP 16; TEMP 36.3; O2SAT 94
[2020-12-17 05:46] VITALS: BP 157/62; PULSE 92; RESP 16; TEMP 36.1; O2SAT 97
[2020-12-17] MEDS: LANSOPRAZOLE ORAL SUSP 30 MG/10 ML ORAL.SUSP FEED TUBE ×2 (05:57→17:26)
[2020-12-17 08:28] LABS: Anion Gap 8 mmol/L (8-16); Blood Urea Nitrogen 22 mg/dL (7-17); Carbon Dioxide 25 mmol/L (22-30); Chloride 102 mmol/L (98-107); Estimated CRCL calculation 27 ml/min; Estimated Glomerular Filt Rate 43; Glucose 154 mg/dL (65-105); Potassium 4.5 mmol/L (3.4-5.0); Sodium 135 mmol/L (137-145)
[2020-12-17] MEDS: ACETAMINOPHEN 500 MG TABLET 1000 MG PO ×2 (08:46→17:25)
[2020-12-17] MEDS: amLODIPine BESYLATE 2.5 MG TABLET FEED TUBE (08:47)
[2020-12-17] MEDS: ATORVASTATIN 40 MG TABLET FEED TUBE (08:47)
[2020-12-17] MEDS: MULTIVIT W/ IRON, MINERALS 15 ML LIQUID (*BKC) FEED TUBE (08:47)
[2020-12-17] MEDS: ASPIRIN 325 MG TABLET FEED TUBE (08:47)
[2020-12-17] MEDS: FLUoxetine HCL 10 MG CAPSULE FEED TUBE (08:47)
--- NOTE | 2020-12-17 12:26 | PCSTNOTE ---
MBS completed. Please see ST inpatient evaluation for details and recommendations.
[2020-12-17 14:00] VITALS: BP 122/48; PULSE 70; RESP 16; TEMP 36.2; O2SAT 100
--- NOTE | 2020-12-17 14:30 | WPDNEURORHBP ---
Subjective Date/time seen: 12/17/20 14:30 Interval history: The patient's primary rehab impairment category is 0 1 stroke The etiologic diagnosis is right MCA infarct The patient is a 80-year-old female with prior medical history of multiple strokes consisting of left frontal ischemic stroke in 2018 on aspirin daily who had sudden onset of left facial droop, left-sided weakness and aphasia on 12/01/20. Patient was transferred to [facility] on 12/01/2020. Upon arrival patient's blood pressure was 156/87 and patient was tachycardic with heart rate of 104. NIHSS was 12. Workup: CTA showed no LV0 or hemodynamically significant stenosis. MRI of the brain demonstrated acute to subacute infarcts in the right frontal lobe which included the precentral gyrus in the right MCA territory. Most likely etiology is cardioembolic versus less likely thromboembolic. CT CAP demonstrate mild stranding around right ureter possibly ureteritis or periureteral hematoma. TTE was positive PFO with an ejection fraction of 61%.LE Doppler negative. Hospital course: The patient was given tPA on 12/01/2020 and then transferred to [facility]. Patient was noted to have anam hematuria. The patient was started on ceftriaxone. Urine cultures showed no significant growth and antibiotics were discontinued. On 12/09/2020 patient developed aspiration pneumonia and was placed on clindamycin. On 12/07/2020 patient was placed with a G-tube due to dysphagia. Patient revealed left-sided weakness impaired balance and are 3 a and dysphagia. Patient was placed on atorvastatin and discontinued simvastatin. A loop recorder was placed prior to discharge. Patient required acute rehabilitation. 12/15/20 Ongoing G tube pain with surrounding abdominal pain. Dr Decker consulted. Patient also does not want gait belt. New information gathered. is a double lung transplant. Both sons of Cystic fibrosis. 12/16/[address] Decker's consultation. Abdominal pain is better today. Spoke with who wishes help with the loop recorder every Saturday. is receptive to learn tube feeding education and training. Endurance is improving. 12/17: no overnight events. she reports sore in her abdomen, but better. tube feeds are runnin gok. no nausea, vomiting. she worked with [employer] this am. Review of Systems Review of Systems: All systems reviewed & are unremarkable except as noted in HPI and below Functional Status Ambulation Ability Ability to Ambulate 10 Feet: Independent Ability to Ambulate 50 Feet With 2 Turns: Independent Ability to Ambulate 150 Feet: Independent Ambulation Assistive Devices: Walker, Wheeled Transfers Ability Ability to Transfer In/Out of Chair: Independent Exam Narrative: Exam Narrative: Madeilne uses hand signals to communicate to examine her. Patient states that abdominal pain is improving. Extraocular muscles are intact Heart rate and rhythm regular Lungs are essentially clear. Abdomen are reveals G-tube present. Patient is performing well with therapy. Objective Data Vital Signs Vital Signs: Vital Signs - 24 hr 12/16/20 20:20 12/16/20 21:51 12/17/20 05:46 Temperature 97.4 F L 96.9 F L Pulse Rate 87 87 92 Respiratory Rate 16 16 16 Blood Pressure 155/57 H 157/62 H Pulse Oximetry 94 94 97 Meds/Results Medications: Active Medications Generic Name Dose Route Start Last Admin Trade Name Freq PRN Reason Stop Dose Admin Acetaminophen 1,000 mg 12/13/20 19:32 Acetaminophen Elixir 325 Mg/10.15 Ml Udc FEED TUBE Q6H PRN Mild Pain (1-3) or Fever Acetaminophen 1,000 mg 12/16/20 17:00 12/17/20 08:46 Acetaminophen 500 Mg Tablet PO 1,000 mg BID OLIVER Administration Hydrocodone Bitart/Acetaminophen 1 tab 12/13/20 19:32 12/16/20 05:29 Hydrocodone/Acetaminophen (*Crx) 5-325 Mg Tablet FEED TUBE 1 tab Q4H PRN Administration Pain Rated 4-6 Amlodipine Besylate 2.5 m
[2020-12-17 20:00] VITALS: PULSE 70; RESP 16; O2SAT 100
[2020-12-17 22:00] VITALS: BP 143/58; PULSE 85; RESP 16; TEMP 36.6; O2SAT 93
[2020-12-18 05:18] LABS: Anion Gap 10 mmol/L (8-16); Blood Urea Nitrogen 23 mg/dL (7-17); Calcium 9.2 mg/dL (8.4-10.2); Carbon Dioxide 27 mmol/L (22-30); Chloride 101 mmol/L (98-107); Estimated CRCL calculation 27 ml/min; Estimated Glomerular Filt Rate 43; Glucose 104 mg/dL (65-105); Potassium 4.2 mmol/L (3.4-5.0); Sodium 138 mmol/L (137-145)
[2020-12-18 06:00] VITALS: BP 145/61; PULSE 96; RESP 18; TEMP 36.6; O2SAT 96
[2020-12-18] MEDS: LANSOPRAZOLE ORAL SUSP 30 MG/10 ML ORAL.SUSP FEED TUBE ×2 (07:03→17:56)
[2020-12-18] MEDS: ACETAMINOPHEN 500 MG TABLET 1000 MG PO ×2 (12:42→17:55)
[2020-12-18] MEDS: ATORVASTATIN 40 MG TABLET FEED TUBE (12:43)
[2020-12-18] MEDS: ASPIRIN 325 MG TABLET FEED TUBE (12:43)
[2020-12-18] MEDS: amLODIPine BESYLATE 2.5 MG TABLET FEED TUBE (12:43)
[2020-12-18] MEDS: FLUoxetine HCL 10 MG CAPSULE FEED TUBE (12:43)
[2020-12-18] MEDS: MULTIVIT W/ IRON, MINERALS 15 ML LIQUID (*BKC) FEED TUBE (12:43)
[2020-12-18 14:00] VITALS: BP 122/54; PULSE 78; RESP 14; TEMP 36.7; O2SAT 98
[2020-12-18 21:08] VITALS: BP 140/47; PULSE 77; RESP 16; TEMP 36.6; O2SAT 94
[2020-12-19 05:47] LABS: Anion Gap 7 mmol/L (8-16); Blood Urea Nitrogen 24 mg/dL (7-17); Calcium 9.2 mg/dL (8.4-10.2); Carbon Dioxide 28 mmol/L (22-30); Chloride 102 mmol/L (98-107); Estimated CRCL calculation 27 ml/min; Estimated Glomerular Filt Rate 43; Glucose 112 mg/dL (65-105); Sodium 137 mmol/L (137-145)
[2020-12-19 06:00] VITALS: BP 141/70; PULSE 89; RESP 16; TEMP 36.3; O2SAT 94
[2020-12-19] MEDS: LANSOPRAZOLE ORAL SUSP 30 MG/10 ML ORAL.SUSP FEED TUBE ×2 (06:44→16:17)
--- NOTE | 2020-12-19 09:40 | WPDNEURORHBP ---
Subjective Date/time seen: 12/19/20 09:40 Interval history: The patient's primary rehab impairment category is 0 1 stroke The etiologic diagnosis is right MCA infarct The patient is a 80-year-old female with prior medical history of multiple strokes consisting of left frontal ischemic stroke in 2018 on aspirin daily who had sudden onset of left facial droop, left-sided weakness and aphasia on 12/01/20. Patient was transferred to [facility] on 12/01/2020. Upon arrival patient's blood pressure was 156/87 and patient was tachycardic with heart rate of 104. NIHSS was 12. Workup: CTA showed no LV0 or hemodynamically significant stenosis. MRI of the brain demonstrated acute to subacute infarcts in the right frontal lobe which included the precentral gyrus in the right MCA territory. Most likely etiology is cardioembolic versus less likely thromboembolic. CT CAP demonstrate mild stranding around right ureter possibly ureteritis or periureteral hematoma. TTE was positive PFO with an ejection fraction of 61%.LE Doppler negative. Hospital course: The patient was given tPA on 12/01/[address] [facility]. Patient was noted to have anam hematuria. The patient was started on ceftriaxone. Urine cultures showed no significant growth and antibiotics were discontinued. On 12/09/2020 patient developed aspiration pneumonia and was placed on clindamycin. On 12/07/2020 patient was placed with a G-tube due to dysphagia. Patient revealed left-sided weakness impaired balance and are 3 a and dysphagia. Patient was placed on atorvastatin and discontinued simvastatin. A loop recorder was placed prior to discharge. Patient required acute rehabilitation. 12/15/20 Ongoing G tube pain with surrounding abdominal pain. Dr Decker consulted. Patient also does not want gait belt. New information gathered. is a double lung transplant. Both sons of Cystic fibrosis. 12/16/[address] Decker's consultation. Abdominal pain is better today. Spoke with who wishes help with the loop recorder every Saturday. is receptive to learn tube feeding education and training. Endurance is improving. 12/17: no overnight events. she reports sore in her abdomen, but better. tube feeds are runnin gok. no nausea, vomiting. she worked with [email or web address] this am. 12/19/20 Patient seen during dressing activity. Patient denies any abdominal pain at this point. Patient does have frequent bowel movements with tube feedings. Patient complains of rectal pain. Will add Anusol. Consult dietary due to frequent bowel movements. Review of Systems Review of Systems: All systems reviewed & are unremarkable except as noted in HPI and below Functional Status Ambulation Ability Ability to Ambulate 10 Feet: Independent Ability to Ambulate 50 Feet With 2 Turns: Independent Ability to Ambulate 150 Feet: Independent Ambulation Assistive Devices: Walker, Wheeled Transfers Ability Ability to Transfer In/Out of Chair: Independent Exam Narrative: Exam Narrative: Madeline uses hand signals to communicate to examine her. Patient states that abdominal pain is improving. Extraocular muscles are intact Heart rate and rhythm regular Lungs are essentially clear. Abdomen are reveals G-tube present. Patient is performing well with therapy. Patient was able to verbalize during the exam. Voice was loud. Objective Data Vital Signs Vital Signs: Vital Signs - 24 hr 12/18/20 14:00 12/18/20 21:08 12/19/20 06:00 Temperature 36.7 C 36.6 C 36.3 C L Pulse Rate 78 77 89 Respiratory Rate 14 16 16 Blood Pressure 122/54 L 140/47 L 141/70 H Pulse Oximetry 98 94 94 Intake/Output Intake/Output: Intake & Output 12/16/20 12/17/20 12/18/20 12/19/20 23:59 23:59 23:59 23:59 Intake Total 280 280 Balance 280 280 Meds/Results Medications: Active Medications Generic Name Dose Route Start Last Admin Trade Name Freq PRN Reason S
[2020-12-19] MEDS: FLUoxetine HCL 10 MG CAPSULE FEED TUBE (10:03)
[2020-12-19] MEDS: ACETAMINOPHEN 500 MG TABLET 1000 MG PO ×2 (10:03→16:17)
[2020-12-19] MEDS: amLODIPine BESYLATE 2.5 MG TABLET FEED TUBE (10:03)
[2020-12-19] MEDS: ASPIRIN 325 MG TABLET FEED TUBE (10:03)
[2020-12-19] MEDS: ATORVASTATIN 40 MG TABLET FEED TUBE (10:03)
[2020-12-19] MEDS: MULTIVIT W/ IRON, MINERALS 15 ML LIQUID (*BKC) FEED TUBE (10:03)
[2020-12-19] MEDS: HYDROCORTISONE ACETATE 25 MG SUPPOSITORY RECTAL ×2 (10:30→22:38)
--- NOTE | 2020-12-19 12:34 | PCDIET ---
Recommend adding Banatrol Plus TID via g-tube to potentially thicken stools. Each packet of Banatrol will provide 40kcal and 3g fiber.
[2020-12-19 14:00] VITALS: BP 151/56; PULSE 79; RESP 18; TEMP 36; O2SAT 95
[2020-12-19 22:00] VITALS: BP 153/64; PULSE 85; RESP 18; TEMP 36.5; O2SAT 97
[2020-12-20 05:22] LABS: Anion Gap 9 mmol/L (8-16); Blood Urea Nitrogen 23 mg/dL (7-17); Calcium 9.2 mg/dL (8.4-10.2); Carbon Dioxide 26 mmol/L (22-30); Chloride 101 mmol/L (98-107); Estimated CRCL calculation 27 ml/min; Estimated Glomerular Filt Rate 43; Glucose 103 mg/dL (65-105); Potassium 4.7 mmol/L (3.4-5.0); Sodium 136 mmol/L (137-145)
[2020-12-20] MEDS: LANSOPRAZOLE ORAL SUSP 30 MG/10 ML ORAL.SUSP FEED TUBE ×2 (05:52→17:04)
[2020-12-20 06:00] VITALS: BP 157/62; PULSE 91; RESP 18; TEMP 36.4; O2SAT 95
[2020-12-20] MEDS: MULTIVIT W/ IRON, MINERALS 15 ML LIQUID (*BKC) FEED TUBE (08:38)
[2020-12-20] MEDS: amLODIPine BESYLATE 2.5 MG TABLET FEED TUBE (08:39)
[2020-12-20] MEDS: ACETAMINOPHEN 500 MG TABLET 1000 MG PO ×2 (08:39→17:04)
[2020-12-20] MEDS: FLUoxetine HCL 10 MG CAPSULE FEED TUBE (08:39)
[2020-12-20] MEDS: ATORVASTATIN 40 MG TABLET FEED TUBE (08:39)
[2020-12-20] MEDS: ASPIRIN 325 MG TABLET FEED TUBE (08:39)
--- NOTE | 2020-12-20 12:04 | WPDNEURORHBP ---
Subjective Date/time seen: 12/20/20 12:04 Interval history: The patient's primary rehab impairment category is 0 1 stroke The etiologic diagnosis is right MCA infarct The patient is a 80-year-old female with prior medical history of multiple strokes consisting of left frontal ischemic stroke in 2018 on aspirin daily who had sudden onset of left facial droop, left-sided weakness and aphasia on 12/01/20. Patient was transferred to [facility] on 12/01/2020. Upon arrival patient's blood pressure was 156/87 and patient was tachycardic with heart rate of 104. NIHSS was 12. Workup: CTA showed no LV0 or hemodynamically significant stenosis. MRI of the brain demonstrated acute to subacute infarcts in the right frontal lobe which included the precentral gyrus in the right MCA territory. Most likely etiology is cardioembolic versus less likely thromboembolic. CT CAP demonstrate mild stranding around right ureter possibly ureteritis or periureteral hematoma. TTE was positive PFO with an ejection fraction of 61%.LE Doppler negative. Hospital course: The patient was given tPA on 12/01/2020 and then transferred to [facility]. Patient was noted to have anam hematuria. The patient was started on ceftriaxone. Urine cultures showed no significant growth and antibiotics were discontinued. On 12/09/2020 patient developed aspiration pneumonia and was placed on clindamycin. On 12/07/2020 patient was placed with a G-tube due to dysphagia. Patient revealed left-sided weakness impaired balance and are 3 a and dysphagia. Patient was placed on atorvastatin and discontinued simvastatin. A loop recorder was placed prior to discharge. Patient required acute rehabilitation. 12/15/20 Ongoing G tube pain with surrounding abdominal pain. Dr Decker consulted. Patient also does not want gait belt. New information gathered. is a double lung transplant. Both sons of Cystic fibrosis. 12/16/[address] Decker's consultation. Abdominal pain is better today. Spoke with who wishes help with the loop recorder every Saturday. is receptive to learn tube feeding education and training. Endurance is improving. 12/17: no overnight events. she reports sore in her abdomen, but better. tube feeds are runnin gok. no nausea, vomiting. she worked with [employer] this am. 12/19/20 Patient seen during dressing activity. Patient denies any abdominal pain at this point. Patient does have frequent bowel movements with tube feedings. Patient complains of rectal pain. Will add Anusol. Consult dietary due to frequent bowel movements. 12/20/20 Patient voices no abdominal pain. Patient is looking forward to going home. is in for training for further tube feeding education. Patient will also begin performing her own tube feedings. Madeline requests that I be her primary care physician. Unfortunately, I explained to the patient that I was a specialist. Patient understood. Review of Systems Review of Systems: All systems reviewed & are unremarkable except as noted in HPI and below Functional Status Ambulation Ability Ability to Ambulate 10 Feet: Independent Ability to Ambulate 50 Feet With 2 Turns: Independent Ability to Ambulate 150 Feet: Independent Ambulation Assistive Devices: None Transfers Ability Ability to Transfer In/Out of Chair: Independent Exam Narrative: Exam Narrative: Madeline uses hand signals to communicate to examine her. Patient states that abdominal pain is improving. Extraocular muscles are intact Heart rate and rhythm regular Lungs are essentially clear. Abdomen are reveals G-tube present. Patient is performing well with therapy. Patient is independent with transfers and gait. Patient still requires assistance with ADLs due to fine motor deficits. Patient continues with severe expressive aphasia Objective Data Vital Signs Vital Signs: Vital Signs - 24 hr 12/19/20 14:00 12/19/20 22:00
--- NOTE | 2020-12-20 13:06 | PCNFU ---
Nutrition Follow-Up Complete: Nutrition Diagnosis: Difficulty swallowing related to stroke as evidenced by NPO status, need for tube feedings. Nutrition Goal:Patient to tolerate tube feedings Goal is in progress. Nutrition recommendation: Continue with Osmolite 1.5 (200ml every 4 hours x5 feedings per day with banatrol flush TID) Last recorded weight is 60.1 kg. Recommend obtaining new weight. Bowel Motility: Last documented on 12/19. Reported soft stool. Labs Reviewed: Na (136), GFR (43), BUN (23), Cr (1.2) Meds Noted: [place], Norvasc, Lipitor, Prozac, Lansoprazole, Prevacid, Clindamycin HCl, Robaxin, Bisacodyl Additional Notes: Left abdomen skin is dry and warm. Patient started on Banatrol on 12/20, patient does not like the smell but is tolerating it. Stools have improved from diarrhea to soft. Sodium slightly decreased (136), will continue to monitor. Follow up every Saturday/Saturday.
--- NOTE | 2020-12-20 13:37 | PCNSR ---
On 12/20/20, the student, Nicki Field, provided care and completed [facility] documentation on this patient. I have reviewed the student's documentation and agree with the findings.
[2020-12-20 14:00] VITALS: BP 156/71; PULSE 78; RESP 16; TEMP 35.9; O2SAT 96
[2020-12-20 22:00] VITALS: BP 152/56; PULSE 73; RESP 16; TEMP 36.6; O2SAT 94
[2020-12-21 05:19] LABS: Basophils Absolute Auto 0.1 K/mm3 (0.0-0.1); Basophils Percent Auto 0.7 % (0.2-1.2); Eosinophils Absolute Auto 0.3 K/mm3 (0-0.3); Eosinophils Percent Auto 2.2 % (0-4.4); Hematocrit 37.4 % (37.0-47.0); Hemoglobin 12.1 g/dL (12.0-15.0); Immature Granulocyte Absolute 0.08 K/mm3 (0.00-0.031); Immature Granulocyte Percent A 0.6 % (0-0.5); Lymphocytes Absolute Auto 1.12 K/mm3 (0.9-3.2); Lymphocytes Percent Auto 8.3 % (18.3-44.2); Mean Corpuscular HGB Conc 32.4 g/dl (32-36); Mean Corpuscular Hemoglobin 28.3 pg (26-34); Mean Corpuscular Volume 87.4 fl (80-100); Mean Platelet Volume 9.3 fl (7.4-10.4); Monocytes Absolute Auto 0.9 K/mm3 (0.1-0.6); Monocytes Percent Auto 6.5 % (2.6-8.5); Neutrophils Percent Auto 81.7 % (45.5-73.1); Platelet Count Result 503 k/mm3 (150-375); Red Blood Count 4.28 M/mm3 (4.2-5.4); Red Cell Distribution Width 13.8 % (11.5-14.5); White Blood Count 13.5 K/mm3 (4.5-10.0)
[2020-12-21 05:34] LABS: Alanine Aminotransferase 109 U/L (4-35); Albumin Level 3.7 g/dL (3.5-5.1); Alkaline Phosphatase 225 U/L (38-126); Anion Gap 10 mmol/L (8-16); Aspartate Amino Transferase 59 U/L (14-36); Bilirubin,Total 0.4 mg/dL (0.2-1.3); Blood Urea Nitrogen 22 mg/dL (7-17); Calcium 9.3 mg/dL (8.4-10.2); Carbon Dioxide 26 mmol/L (22-30); Chloride 101 mmol/L (98-107); Estimated CRCL calculation 27 ml/min; Estimated Glomerular Filt Rate 43; Glucose 109 mg/dL (65-105); Potassium 4.6 mmol/L (3.4-5.0); Sodium 137 mmol/L (137-145)
[2020-12-21 06:00] VITALS: BP 150/67; PULSE 107; RESP 18; TEMP 36.7; O2SAT 97
[2020-12-21] MEDS: LANSOPRAZOLE ORAL SUSP 30 MG/10 ML ORAL.SUSP FEED TUBE ×2 (06:31→16:44)
[2020-12-21] MEDS: MULTIVIT W/ IRON, MINERALS 15 ML LIQUID (*BKC) FEED TUBE (09:04)
[2020-12-21] MEDS: amLODIPine BESYLATE 2.5 MG TABLET FEED TUBE (09:04)
[2020-12-21] MEDS: ASPIRIN 325 MG TABLET FEED TUBE (09:04)
[2020-12-21] MEDS: ATORVASTATIN 40 MG TABLET FEED TUBE (09:04)
[2020-12-21] MEDS: ACETAMINOPHEN 500 MG TABLET 1000 MG PO ×2 (09:04→16:45)
[2020-12-21] MEDS: FLUoxetine HCL 10 MG CAPSULE FEED TUBE (09:05)
--- NOTE | 2020-12-21 11:46 | WPDNEURORHBP ---
Subjective Date/time seen: 12/21/20 11:46 Interval history: The patient's primary rehab impairment category is 0 1 stroke The etiologic diagnosis is right MCA infarct The patient is a 80-year-old female with prior medical history of multiple strokes consisting of left frontal ischemic stroke in 2018 on aspirin daily who had sudden onset of left facial droop, left-sided weakness and aphasia on 12/01/20. Patient was transferred to [facility] on 12/01/2020. Upon arrival patient's blood pressure was 156/87 and patient was tachycardic with heart rate of 104. NIHSS was 12. Workup: CTA showed no LV0 or hemodynamically significant stenosis. MRI of the brain demonstrated acute to subacute infarcts in the right frontal lobe which included the precentral gyrus in the right MCA territory. Most likely etiology is cardioembolic versus less likely thromboembolic. CT CAP demonstrate mild stranding around right ureter possibly ureteritis or periureteral hematoma. TTE was positive PFO with an ejection fraction of 61%.LE Doppler negative. Hospital course: The patient was given tPA on 12/01/2020 and then transferred to [facility]. Patient was noted to have anam hematuria. The patient was started on ceftriaxone. Urine cultures showed no significant growth and antibiotics were discontinued. On 12/09/2020 patient developed aspiration pneumonia and was placed on clindamycin. On 12/07/2020 patient was placed with a G-tube due to dysphagia. Patient revealed left-sided weakness impaired balance and are 3 a and dysphagia. Patient was placed on atorvastatin and discontinued simvastatin. A loop recorder was placed prior to discharge. Patient required acute rehabilitation. 12/15/20 Ongoing G tube pain with surrounding abdominal pain. Dr Decker consulted. Patient also does not want gait belt. New information gathered. is a double lung transplant. Both sons of Cystic fibrosis. 12/16/[address] Decker's consultation. Abdominal pain is better today. Spoke with who wishes help with the loop recorder every Saturday. is receptive to learn tube feeding education and training. Endurance is improving. 12/17: no overnight events. she reports sore in her abdomen, but better. tube feeds are runnin gok. no nausea, vomiting. she worked with [employer] this am. 12/19/20 Patient seen during dressing activity. Patient denies any abdominal pain at this point. Patient does have frequent bowel movements with tube feedings. Patient complains of rectal pain. Will add Anusol. Consult dietary due to frequent bowel movements. 12/20/20 Patient voices no abdominal pain. Patient is looking forward to going home. is in for training for further tube feeding education. Patient will also begin performing her own tube feedings. Madeline requests that I be her primary care physician. Unfortunately, I explained to the patient that I was a specialist. Patient understood. Review of Systems Review of Systems: All systems reviewed & are unremarkable except as noted in HPI and below Functional Status Ambulation Ability Ability to Ambulate 10 Feet: Independent Ability to Ambulate 50 Feet With 2 Turns: Independent Ability to Ambulate 150 Feet: Independent Ambulation Assistive Devices: None Transfers Ability Ability to Transfer In/Out of Chair: Independent Exam Narrative: Exam Narrative: Madeline uses hand signals to communicate to examine her. Patient states that abdominal pain is improving. Extraocular muscles are intact Heart rate and rhythm regular Lungs are decreased in the bases. Abdomen are reveals G-tube present. Patient is independent with transfers and gait. Patient still requires assistance with ADLs due to fine motor deficits. Patient continues with severe expressive aphasia. is performing TF training. Objective Data Vital Signs Vital Signs: Vital Signs - 24 hr 12/20/20 14:00 12/20/20 22:00
[2020-12-21 14:00] VITALS: BP 136/61; PULSE 94; RESP 18; TEMP 36.9; O2SAT 100
[2020-12-21] MEDS: FUROSEMIDE 20 MG TABLET PO (16:44)
[2020-12-21 21:49] VITALS: BP 151/51; PULSE 76; RESP 16; TEMP 36.7; O2SAT 95
[2020-12-22 06:00] VITALS: BP 150/57; PULSE 91; RESP 16; TEMP 36.9; O2SAT 95
[2020-12-22 06:26] LABS: Basophils Absolute Auto 0.1 K/mm3 (0.0-0.1); Basophils Percent Auto 0.6 % (0.2-1.2); Eosinophils Absolute Auto 0.2 K/mm3 (0-0.3); Hematocrit 40.3 % (37.0-47.0); Immature Granulocyte Absolute 0.07 K/mm3 (0.00-0.031); Immature Granulocyte Percent A 0.6 % (0-0.5); Lymphocytes Absolute Auto 0.89 K/mm3 (0.9-3.2); Lymphocytes Percent Auto 7.8 % (18.3-44.2); Mean Corpuscular HGB Conc 32.3 g/dl (32-36); Mean Corpuscular Hemoglobin 29.1 pg (26-34); Mean Corpuscular Volume 90.2 fl (80-100); Mean Platelet Volume 9.5 fl (7.4-10.4); Monocytes Absolute Auto 0.7 K/mm3 (0.1-0.6); Monocytes Percent Auto 6.3 % (2.6-8.5); Neutrophils Absolute Auto 9.5 K/mm3 (1.3-6.7); Neutrophils Percent Auto 82.7 % (45.5-73.1); Platelet Count Result 517 k/mm3 (150-375); Red Blood Count 4.47 M/mm3 (4.2-5.4); Red Cell Distribution Width 13.8 % (11.5-14.5); White Blood Count 11.5 K/mm3 (4.5-10.0)
[2020-12-22 06:36] LABS: Anion Gap 7 mmol/L (8-16); Blood Urea Nitrogen 27 mg/dL (7-17); Calcium 9.3 mg/dL (8.4-10.2); Carbon Dioxide 29 mmol/L (22-30); Chloride 101 mmol/L (98-107); Estimated CRCL calculation 27 ml/min; Estimated Glomerular Filt Rate 43; Glucose 107 mg/dL (65-105); Potassium 4.9 mmol/L (3.4-5.0); Sodium 137 mmol/L (137-145)
[2020-12-22] MEDS: LANSOPRAZOLE ORAL SUSP 30 MG/10 ML ORAL.SUSP FEED TUBE (07:00)
[2020-12-22] MEDS: MULTIVIT W/ IRON, MINERALS 15 ML LIQUID (*BKC) FEED TUBE (08:55)
[2020-12-22] MEDS: ATORVASTATIN 40 MG TABLET FEED TUBE (08:55)
[2020-12-22] MEDS: amLODIPine BESYLATE 2.5 MG TABLET FEED TUBE (08:55)
[2020-12-22] MEDS: FLUoxetine HCL 10 MG CAPSULE FEED TUBE (08:55)
[2020-12-22] MEDS: ACETAMINOPHEN 500 MG TABLET 1000 MG PO (08:55)
[2020-12-22] MEDS: ASPIRIN 325 MG TABLET FEED TUBE (08:55)
--- NOTE | 2020-12-22 08:58 | PM.DS ---
DS: Admitting Diagnosis Admitting Diagnosis Admitting Diagnosis: Right MCA infarct with expressive aphasia DS: Discharge Diagnosis Discharge Diagnosis (1) G tube feedings: Code(s): Z93.1 - Gastrostomy status Status: Acute Assessment and Plan: Patient is receiving 200 mL of Osmolite 1.5 every 4 hours x 5. Patient receives flushes of 80 cc (2) CVA (cerebral vascular accident): Code(s): I63.9 - Cerebral infarction, unspecified Status: Acute Assessment and Plan: aspirin 325 daily Lipitor 40 mg daily (3) Abdominal pain: Code(s): R10.9 - Unspecified abdominal pain Status: Acute Assessment and Plan: status post G-tube. KUB and CT of abdomen performed . Dr. Decker consulted . GI series reveals gastrostomy tube is in place and moderate for GERD. Pain has essentially resolved. Incidental finding of 1.4 cm partially obstructing stone at the right ureteral vesicular junction with mild right hydronephrosis was noted. 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 (4) Dysphagia: Code(s): R13.10 - Dysphagia, unspecified Status: Acute Assessment and Plan: G-tube feedings . Dietary is following. On 12/19/2020 patient had numerous bowel movements over the weekend. Dietary will need to re-evaluate type of tube feeding. Tube feeding dosing was adjusted and Banatrol was added to decrease diarrhea Patient will require tube feedings for greater than 90 days. (5) Aphasia complicating stroke: Status: Acute Assessment and Plan: speech (6) Left hemiplegia: Code(s): G81.94 - Hemiplegia, unspecified affecting left nondominant side Status: Acute Assessment and Plan: PT OT (7) Spinal stenosis: Code(s): M48.00 - Spinal stenosis, site unspecified Status: Acute (8) Hypercalcemia: Code(s): E83.52 - Hypercalcemia Status: Resolved (9) Nephrolithiasis: Code(s): N20.0 - Calculus of kidney Status: Acute Assessment and Plan: 1.4 cm partially obstructing stone at the right ureteral vesicular junction with mild right hydronephrosis (10) Vitamin D deficiency: Code(s): E55.9 - Vitamin D deficiency, unspecified Status: Acute (11) Depression: Code(s): F32.9 - Major depressive disorder, single episode, unspecified Status: Acute Assessment and Plan: Prozac (12) Hypertension: Code(s): I10 - Essential (primary) hypertension Status: Acute (13) Stage III chronic kidney disease: Code(s): N18.30 - Chronic kidney disease, stage 3 unspecified Status: Acute Assessment and Plan: patient 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 Patient is placed on clindamycin 300 mg q.8 hours. Patient requires 1 more dose before completing on transfer to rehab. Patient remained with mild leukocytosis at time of discharge. Patient showed no signs of clinical fever, shortness of breath. Patient was encouraged to use the incentive spirometry but due to her oral motor apraxia this was difficult. Lung sounds clear when patient is able to take a deep breath. No antibiotics are needed at this time.. DS: Summary Hospital Course Hospital Course: The etiologic diagnosis is right MCA infarct The patient is a 80-year-old female with prior medical history of multiple strokes consisting of left frontal ischemic stroke in 2018 on aspirin daily who had sudden onset of left facial droop, left-sided weakness and aphasia on 12/01/20. Patient was transferred to [facility] on 12/01/2020. Upon arrival patient's blood pressure was 156/87 and patient was tachycardic with heart rate of 104. NIHSS was 12. Workup: CTA showed no LV0 or hemodynamically significant stenosis. MRI of the b
== END 2020-12-22 11:30 | disposition home health service (06) | DRG 57 ==
PROVIDERS: Admitting Provider Physical Medicine & Rehabilitation; PCP Internal Medicine; Visit Provider Physical Medicine & Rehabilitation
DX: I69.354 Hemiplegia and hemiparesis following cerebral infarction affecting left non-dominant side (principal); I69.320 Aphasia following cerebral infarction; I69.392 Facial weakness following cerebral infarction; I69.391 Dysphagia following cerebral infarction; R13.10 Dysphagia, unspecified; D72.829 Elevated white blood cell count, unspecified; E55.9 Vitamin D deficiency, unspecified; E21.3 Hyperparathyroidism, unspecified; F32.9 Major depressive disorder, single episode, unspecified; I12.9 Hypertensive chronic kidney disease with stage 1 through stage 4 chronic kidney disease, or unspecified chronic kidney disease; K21.9 Gastro-esophageal reflux disease without esophagitis; N18.30 Chronic kidney disease, stage 3 unspecified; N20.0 Calculus of kidney; Z93.1 Gastrostomy status; Z79.82 Long term (current) use of aspirin
CPT/HCPCS: 36415; 74018; 74176; 74240; 80048; 80053; 80061; 82948; 85025; 92507; 92523; 92526; 92610; 92611; 97110; 97116; 97161; 97166; 97530; 97535; A9270

== ENCOUNTER 2020-12-23 19:05 | Inpatient (IN) | payer MEDICARE, SELFPAY ==
--- NOTE | ~2020-12-23 | XR_ITS ---
XR chest 2V DATE: 12/23/2020 19:43 INDICATION: Shortness of breath. Fever. TECHNIQUE: AP and lateral views COMPARISON: 02/13/2018 portable AP chest FINDINGS: There is moderate elevation right leaf of diaphragm. There is mild patchy infiltrate and/or atelectasis at both lower lung zones. 5 mm nodular density overlying right mid to upper lung. Normal heart size. Aortic arch calcification. No hilar or mediastinal enlargement is evident. Monitor device overlies the anterior mid chest. Circular radiopaque device overlies the anterior left upper quadrant of the abdomen. Diffuse osteopenia. IMPRESSION: Moderate elevation right leaf of diaphragm Bibasilar infiltrate and/atelectasis 5 mm nodular density overlying the right mid-upper lung Aortic atherosclerosis Reviewed, dictated and finalized at location A.
--- NOTE | ~2020-12-23 | CT_ITS ---
EXAMINATION: CT abdomen pelvis w con DATE: 12/23/2020 21:24 INDICATION: Fever.] Gastrostomy TECHNIQUE: Computed tomography (CT) of the abdomen and pelvis was performed with 100 cc Omnipaque 350 intravenous contrast. Automated exposure control and iterative reconstruction technique were employe d. Exam dose: 310.10 mGy-cm total exam DLP. COMPARISON: 12/13/2020 CT abdomen pelvis 12/13/2020 KUB FINDINGS: Mild atelectasis at the lung bases. No pericardial or pleural effusion. There is an air-fluid collection at the anterior margin of the left hepatic lobe, measuring up to 9 c m transverse dimension and 2.9 cm anteroposterior dimension. The medial margin is situated at the sup erior medial aspect of the gastrostomy tube. The liver and gallbladder bile ducts otherwise are unremarkable. Normal splenic size. Normal morphology of the adrenal glands. Approximately 1.5 cm right renal pelvic calculus with attenuation of approximately 7[address] [place] uni ts. There are some thickening of the urothelium of the right renal pelvis, suggesting possible infect ion. Approximately 2.2 cm posterior upper pole left renal cyst. There is extensive calcification of the abdominal aorta and iliac and femoral arteries but no aneurys m. No intraperitoneal or retroperitoneal or pelvic mass lesion or adenopathy or ascites. Diverticulosis of the colon; no CT evidence of diverticulitis Normal appendix. No bowel obstruction or intraperitoneal free air. Small fat-containing umbilical hernia. Grade 1 anterolisthesis at L3-4. Grade 1 anterolisthesis and severe degenerative disc disease at L4-5. Diffuse osteopenia. IMPRESSION: Large air-fluid collection at the anterior aspect of the liver to the right of the gastr ostomy tube 1.5 cm right renal pelvic calculus 2.2 cm left renal cyst Diverticulosis of the colon Normal appendix Reviewed, dictated and finalized at [facility]. Reviewed, dictated and finalized at location A. IMPRESSION: Large air-fluid collection at the anterior aspect of the liver to the right of the gastrostomy tube 1.5 cm right renal pelvic calculus 2.2 cm left renal cyst Diverticulosis of the colon Normal appendix
[2020-12-23 19:11] VITALS: BP 134/61; PULSE 124; RESP 18; TEMP 38.5; O2SAT 96
--- NOTE | 2020-12-23 19:17 | ED.GENADULT ---
HPI - General Adult General Chief complaint: Unspecified <Luis Mitchell MD - Last Filed: 12/25/20 19:37> Stated complaint: G tube clogged, weakness <Luis Mitchell MD - Last Filed: 12/25/20 19:37> Time Seen by Provider: 12/23/20 19:17 <Luis Mitchell MD - Last Filed: 12/25/20 19:37> History of Present Illness HPI narrative: 80 yo female w/ h/o CVA presnets to the ED for clogged g-tube. She had a stroke on 12/01. She has severe expressive aphasia and she is g-tube dependent. Today her g-tube became clogged. She was noted to be febrile in triage. She does endorse fatigue for the past few days. She also has increased tenderness around her g-tube site. Additionally her says that she has been short of breath recently. <Luis Mitchell MD - Last Filed: 12/25/20 19:37> Related Data Allergies/adverse reactions: Allergies Allergy/AdvReac Type Severity Reaction Status Date / Time cefaclor Allergy Mild Verified 02/11/16 15:30 itraconazole Allergy Mild Verified 02/11/16 15:30 Penicillins Allergy Mild Verified 02/11/16 15:30 Sulfa (Sulfonamide Allergy Mild Verified 02/11/16 15:30 Antibiotics) terbinafine Allergy Mild Verified 12/13/20 18:43 peanut Allergy Unknown Verified 02/11/16 15:30 <Luis Mitchell MD - Last Filed: 12/25/20 19:37> Review of Systems Review of Systems: ROS unobtainable: Yes other (limited by aphasia) <Luis Mitchell MD - Last Filed: 12/25/20 19:37> Cardiovascular: Cardiovascular: Denies chest pain <Luis Mitchell MD - Last Filed: 12/25/20 19:37> Respiratory: Respiratory: Reports dyspnea <Luis Mitchell MD - Last Filed: 12/25/20 19:37> Gastrointestinal: Gastrointestinal: Reports abdominal pain <Luis Mitchell MD - Last Filed: 12/25/20 19:37> Genitourinary: Genitourinary: Reports no additional female genitourinary complaints <Luis Mitchell MD - Last Filed: 12/25/20 19:37> Neurologic: Reports weakness <Luis Mitchell MD - Last Filed: 12/25/20 19:37> PMFSH Past Medical History Medical History: Medical History CVA (cerebral vascular accident) Left frontal lobe stroke 2017, right frontal lobe MCA stroke 11/11/2020 Depression Hypercalcemia Hyperparathyroidism due to renal insufficiency Hypertension Nephrolithiasis 1.4 cm partially obstructing stone in the right UVJ junction with mild right hydronephrosis noted on CT 12/13/2020 Spinal stenosis Stage III chronic kidney disease Vitamin D deficiency <Luis Mitchell MD - Last Filed: 12/25/20 19:37> Surgical History Surgical History: Surgical History G tube feedings <Luis Mitchell MD - Last Filed: 12/25/20 19:37> Family History Family History: Family History Father Colon cancer Mother Dementia Ovarian cancer Son Cystic fibrosis <Luis Mitchell MD - Last Filed: 12/25/20 19:37> Social History Social History: Social History Social History: She lives with her spouse. Her has been is a double lung recipient. Both sons from cystic fibrosis. Smoking status: Never smoker Second hand tobacco smoke exposure: No Alcohol intake: never Substance use: never Gender identity (if verbalized by the patient): Female Spiritual care concerns: No <Luis Mitchell MD - Last Filed: 12/25/20 19:37> Exam Const: General: cooperative, no acute distress, alert and ill appearing <Luis Mitchell MD - Last Filed: 12/25/20 19:37> Nutritional Appearance: well nourished <Luis Mitchell MD - Last Filed: 12/25/20 19:37> HENMT: Head: normal to inspection <Luis Mitchell MD - Last Filed: 12/25/20 19:37> Neck: Neck: normal visual inspection <Luis Mitchell MD -
[2020-12-23 19:37] VITALS: BP 124/84; PULSE 114; RESP 22; O2SAT 98
[2020-12-23] MEDS: SODIUM CHLORIDE 0.9% IV 1,000 ML 999 ML IV CONT (19:37)
[2020-12-23 19:55] LABS: Basophils Absolute Auto 0.1 K/mm3 (0.0-0.1); Basophils Percent Auto 0.4 % (0.2-1.2); Eosinophils Percent Auto 0.2 % (0-4.4); Hemoglobin 12.1 g/dL (12.0-15.0); Immature Granulocyte Absolute 0.12 K/mm3 (0.00-0.031); Immature Granulocyte Percent A 0.5 % (0-0.5); Lymphocytes Absolute Auto 1.33 K/mm3 (0.9-3.2); Lymphocytes Percent Auto 5.9 % (18.3-44.2); Mean Corpuscular HGB Conc 32.7 g/dl (32-36); Mean Corpuscular Hemoglobin 29.2 pg (26-34); Mean Corpuscular Volume 89.4 fl (80-100); Mean Platelet Volume 9.8 fl (7.4-10.4); Monocytes Absolute Auto 1.6 K/mm3 (0.1-0.6); Neutrophils Absolute Auto 19.4 K/mm3 (1.3-6.7); Platelet Count Result 525 k/mm3 (150-375); Red Blood Count 4.14 M/mm3 (4.2-5.4); Red Cell Distribution Width 14.1 % (11.5-14.5); White Blood Count 22.5 K/mm3 (4.5-10.0)
[2020-12-23 20:03] LABS: Lactic Acid Reflex 1.7 mmol/L (0.7-2.1)
[2020-12-23 20:03] LABS: INR 1.1; Prothrombin Time 14.3 Seconds (11.1-14.7)
[2020-12-23 20:04] LABS: Partial Thromboplastin Time 30.3 SECONDS (22.3-36.8)
[2020-12-23 20:11] LABS: Alanine Aminotransferase 69 U/L (4-35); Albumin Level 3.9 g/dL (3.5-5.1); Alkaline Phosphatase 208 U/L (38-126); Aspartate Amino Transferase 39 U/L (14-36); Blood Urea Nitrogen 27 mg/dL (7-17); Calcium 9.7 mg/dL (8.4-10.2); Carbon Dioxide 26 mmol/L (22-30); Chloride 99 mmol/L (98-107); Estimated Glomerular Filt Rate 43
[2020-12-23 20:12] LABS: Anion Gap 10 mmol/L (8-16); Bilirubin,Total 0.8 mg/dL (0.2-1.3); Glucose 122 mg/dL (65-105); Potassium 4.4 mmol/L (3.4-5.0); Sodium 135 mmol/L (137-145)
[2020-12-23 20:28] LABS: CRP 26.5 mg/dL (<1.0)
[2020-12-23 21:48] LABS: Add Urine Microscopic? YES; Amorphous Sediment Urine Few; Appearance Urine Cloudy (Clear); Bacteria Urine Trace /hpf; Bilirubin Urine Negative (Negative); Blood Urine 1+ (Negative); Color Urine Yellow (Yellow); Glucose Urine UA Negative (Negative); Ketones Urine Negative (Negative); Leukocyte Esterase Ur 1+ LEU/UL (Negative); Mucus Urine Rare /lpf; Nitrate Urine Negative (Negative); Protein Urine 1+ mg/dL (Negative); RBC Urine 51-75 /hpf (0-2); Specific Grav Ur 1.019 (1.001-1.035); Squamous Epithelial Cell Urine Rare /hpf (Few); Urobilinogen Urine Negative mg/dL (<2.0); WBC Urine 16-20 /hpf
[2020-12-23] MEDS: metroNIDAZOLE 500 MG/ISO 100ML 500 MG/100 ML BAG 100 MG IVPB (22:27)
[2020-12-23 23:15] VITALS: BP 128/86; PULSE 97; RESP 20; TEMP 37.3; O2SAT 98
[2020-12-23 23:18] LABS: EDCOVIDSCREEN Negative (Negative)
[2020-12-24 01:47] VITALS: BP 128/64; PULSE 94; RESP 18; TEMP 37.2; O2SAT 98
--- NOTE | 2020-12-24 03:33 | PM.IMHP ---
H&P: HPI History of Present Illness Date/Time: 12/24/20 03:33 Chief Complaint: Clogged G-tube Narrative: Female with past medical history of hypertension, hyperlipidemia and multiple strokes who presented to the ER from home due to clogged G-tube. The patient had initially presented to the hospital 12/01/2020 and was treated at [facility] for acute CVA with left-sided facial droop, aphasia and left-sided weakness. Her MRI demonstrated likely cardio embolic right frontal lobe acute to subacute CVAs. Her echo at that time demonstrated a PFO. The patient received tPA. The patient was noted to have evidence of aspiration and had a G-tube placed 12/07/2020. The patient was discharged from [facility] and placed in acute rehab 12/13/2020. While in acute rehab patient had some continued abdominal pain. GI was consulted and a Gastrografin study was performed demonstrating G-tube was appropriately position. There was a small amount of free air that was thought to be due to the initial placement of the G-tube. The patient's abdominal pain eventually resolved. The patient continued to have evidence of aspiration on repeat modified barium swallow and G-tube feeds were continued. The patient was discharged home on G-tube feeds with Osmolite 1.52 cc every 4 hours 5 times a day with 80 mL free water flushes. She was discharged from acute rehab 12/22/2020. On 12/23/2020 when feeds were attempted the patient's G-tube was clogged. The patient was brought in to the ER for evaluation. The patient reports pain at G-tube site. The patient is unable to speak due to her expressive aphasia. But she points to her G-tube when asked about pain. She indicates that the pain is a 4/10 in intensity and is worse with palpation. On arrival to the ER the patient was noted to be febrile a T-max of 101.3?. CT of the abdomen pelvis with contrast demonstrated large area of fluid collection anterior aspect of the liver to the right at gastrostomy tube. The ER physician discussed the patient's case with our surgical service who felt the patient would be best served by returning to [facility] since they had placed the gastrostomy tube. The surgical service at [facility] who felt the patient did not need to be admitted to their service. The surgeon at [facility] felt the patient needed IR drainage of the fluid collection. As we do not have IR available on weekends the ER physician her discussed the patient's case with the medicine service at [facility] who accepted the patient in transfer. However, there are no beds available for the next 24-48 hours. Patient has been admitted awaiting placement at tertiary care. The patient shakes her head no when I tell her that she needs to go to [facility]. I tried to explain about lack of availability of IR services on the weekend. Patient seems to understand. She denies having any nausea or vomiting. She reports that they were having trouble getting her G-tube to flush. However, the patient's G-tube did flush in the ER. She denies changes in bowel habits. She has not been any dysuria. She has been having some intermittent shortness of breath. She has a cough. It seems that her cough is due to the secretions in her mouth. Review of Systems Review of Systems: Narrative: 12 systems were reviewed with pertinent positives and negatives per HPI. Except as documented in the HPI, all other systems were reviewed and are negative. The patient is able to answer questions by nodding and gestures. Patient seemed to be a reliable historian but history is still somewhat limited as she is nonverbal. [facility] Past Medical History Medical History (Updated 12/24/20 @ 04:01 by Allyson Sims DO) CVA (cerebral vascular accident) Left frontal lobe stroke 2017, right frontal lobe MCA stroke 11/11/2020 Depression Hypercalcemia Hyperparathyroidism due to renal insufficiency Hypertension Nephrolithiasis 1.4 cm partially obstructing stone in the right UVJ junction with mi
[2020-12-24] MEDS: SODIUM CHLORIDE 0.9% IV 1,000 ML 125 ML IV CONT ×2 (03:40→13:55)
[2020-12-24 03:48] VITALS: BP 124/83; PULSE 92; RESP 16; TEMP 36.8; O2SAT 98
--- NOTE | 2020-12-24 04:17 | ADMGEN ---
This patient, Madeline Mcneil, was admitted to 2 Medical Room 254-01. Patient/family oriented to hospital policies and general routines including ID bracelet, bed and alarms, visiting hours, pain management, procedures, bathroom and other care routines, personal items, smoking policy, room service/diet, and visiting hours. Information on how to activate the Rapid Response Team has been discussed. Patient/Family are encouraged to report perceived risks to care and to ask questions if they do not understand what they are told or what they should do.
[2020-12-24 04:39] VITALS: BMI 23.3
[2020-12-24 04:40] VITALS: BP 121/66; PULSE 100; RESP 18; TEMP 36.6; O2SAT 98
[2020-12-24] MEDS: metroNIDAZOLE 500 MG/ISO 100ML 500 MG/100 ML BAG 100 MG IVPB ×3 (05:57→17:10)
[2020-12-24] MEDS: amLODIPine BESYLATE 2.5 MG TABLET FEED TUBE (08:36)
[2020-12-24] MEDS: ATORVASTATIN 40 MG TABLET FEED TUBE (08:36)
[2020-12-24] MEDS: FLUoxetine HCL 10 MG CAPSULE FEED TUBE (08:36)
--- NOTE | 2020-12-24 10:13 | PM.CNGS ---
Assessment and Plan Assessment and plan (1) Malfunction of gastrostomy tube: Code(s): K94.23 - Gastrostomy malfunction Status: Acute Assessment and Plan: will need further studies to determine etiology of abscess and G tube position, will hold all use of tube for now as plan to transfer back to [facility] (2) Intra-abdominal abscess: Code(s): K65.1 - Peritoneal abscess Status: Acute Assessment and Plan: will need IR drainage of abscess, IV abx for now History of Present Illness Consult details Consult date: 12/24/20 Reason for consult: abdominal pain Requesting physician: Allyson Sims DO Narrative: Pt is a 80 y/o F s/p recent CVA c subsequent placement of PEG tube at [facility]. Pt recently dc'd from rehab. Pt has expressive aphasia so all history obtained via chart. They had issues c tube feeds yesterday and felt tube was clogged. Pt also c/o pain around upper abdomen and G tube site. Review of Systems Review of Systems: ROS unobtainable: Yes unobtainable due to medical condition and unobtainable due to mental status PMFSH Past Medical History Medical History CVA (cerebral vascular accident) Left frontal lobe stroke 2017, right frontal lobe MCA stroke 11/11/2020 Depression Hypercalcemia Hyperparathyroidism due to renal insufficiency Hypertension Nephrolithiasis 1.4 cm partially obstructing stone in the right UVJ junction with mild right hydronephrosis noted on CT 12/13/2020 Spinal stenosis Stage III chronic kidney disease Vitamin D deficiency Surgical History Surgical History G tube feedings Family History Family History Father Colon cancer Mother Dementia Ovarian cancer Son Cystic fibrosis Social History Social History Social History: She lives with her spouse. Her has been is a double lung recipient. Both sons from cystic fibrosis. Smoking status: Never smoker Second hand tobacco smoke exposure: No Alcohol intake: never Substance use: never Gender identity (if verbalized by the patient): Female Spiritual care concerns: No Meds Home Medications and Allergies Home Medications Medication Instructions Recorded Confirmed Type amlodipine 2.5 mg FEEDING TUBE DAILY #30 12/21/20 12/24/20 Rx tablet aspirin 325 mg FEEDING TUBE DAILY #30 12/21/20 12/24/20 Rx tablet atorvastatin 40 mg FEEDING TUBE DAILY #30 tablet 12/21/20 12/24/20 Rx fluoxetine [Prozac] 10 mg FEEDING TUBE QAM #30 cap 12/21/20 12/24/20 Rx lansoprazole 30 mg FEEDING TUBE BIDAC #60 cap 12/21/20 12/24/20 Rx gqvuzilcstye-hgxn-eerkokrc 15 ml FEEDING TUBE QAM #178 ml 12/21/20 12/24/20 Rx [Lysiplex Plus] Allergies Allergy/AdvReac Type Severity Reaction Status Date / Time cefaclor Allergy Mild Verified 02/11/16 15:30 itraconazole Allergy Mild Verified 02/11/16 15:30 Penicillins Allergy Mild Verified 02/11/16 15:30 Sulfa (Sulfonamide Allergy Mild Verified 02/11/16 15:30 Antibiotics) terbinafine Allergy Mild Verified 12/13/20 18:43 peanut Allergy Unknown Verified 02/11/16 15:30 Vital Signs Vital Signs - 24 hr 12/23/20 19:11 12/23/20 19:37 12/23/20 23:15 Temperature 38.5 C H 37.3 C Pulse Rate 124 H 114 H 97 Respiratory Rate 18 22 H 20 Blood Pressure 134/61 124/84 128/86 Pulse Oximetry 96 98 98 12/24/20 01:47 12/24/20 03:48 12/24/20 04:40 Temperature 37.2 C 36.8 C 36.6 C Pulse Rate 94 92 100 Respiratory Rate 18 16 18 Blood Pressure 128/64 124/83 121/66 Pulse Oximetry 98 98 98 Exam Const: General: cooperative, comfortable, no acute distress and ill appearing Nutritional Appearance: average body habitus Limitations: altered mental status HENMT: Head: normal to inspection, No palpable skull fracture present, no
[2020-12-24 14:00] VITALS: BP 121/71; PULSE 97; RESP 18; TEMP 37; O2SAT 98
[2020-12-24] MEDS: ONDANSETRON INJ 4 MG/2 ML VIAL IV PUSH (15:06)
--- NOTE | 2020-12-24 18:49 | PC.NURSE ---
Report called to MANINDER Alva at [facility]. All questions were answered. Patient notified that ambulance ETA is 2100.
[2020-12-24 21:20] VITALS: BP 107/55; PULSE 106; RESP 18; TEMP 36.2; O2SAT 97
--- NOTE | 2020-12-25 08:34 | PM.TDS ---
Transfer Discharge Sum: Prov Provider Date of admission: 12/24/20 17:19 Primary care physician: Christopher Alexandra, MD Admitting clinician: Allyson Sims DO Consults: 12/24/20 01:38 Consult to Physician Routine Comment: Consulting Provider: Mary Carter lumber piler operator/MD group to consult: Raul Reason for consultation: intra-abdominal abscess Has provider been notified: Yes DS: Admitting Diagnosis Admitting Diagnosis Admitting Diagnosis: Clogged G-tube DS: Discharge Diagnosis Discharge Diagnosis (1) Intra-abdominal abscess: Code(s): K65.1 - Peritoneal abscess Status: Acute Assessment and Plan: Continue IV levaquin (2) Sepsis: Qualifiers: Sepsis acute organ dysfunction status: without acute organ dysfunction Sepsis type: sepsis due to unspecified organism Qualified Code(s): A41.9 - Sepsis, unspecified organism Code(s): A41.9 - Sepsis, unspecified organism Status: Acute Assessment and Plan: Continue IV levaquin (3) Malfunction of gastrostomy tube: Code(s): K94.23 - Gastrostomy malfunction Status: Acute Assessment and Plan: Continue IV levaquin (4) Bacteriuria with pyuria: Code(s): R82.71 - Bacteriuria; R82.81 - Pyuria Status: Acute Assessment and Plan: Continue IV levaquin Transfer Discharge Sum: Med Medications Active and Home Medications: Home Medications amlodipine 2.5 mg FEEDING TUBE DAILY #30 tablet 12/21/20 [Rx Confirmed 12/24/20] aspirin 325 mg FEEDING TUBE DAILY #30 tablet 12/21/20 [Rx Confirmed 12/24/20] atorvastatin 40 mg FEEDING TUBE DAILY #30 tablet 12/21/20 [Rx Confirmed 12/24/20] fluoxetine [Prozac] 10 mg FEEDING TUBE QAM #30 cap 12/21/20 [Rx Confirmed 12/24/20] lansoprazole 30 mg FEEDING TUBE BIDAC #60 cap 12/21/20 [Rx Confirmed 12/24/20] rlbrfkcikfxa-yyqi-dwpewhiv [Lysiplex Plus] 15 ml FEEDING TUBE QAM #178 ml 12/21/20 [Rx Confirmed 12/24/20] Transfer Discharge Sum: Hosp Hospital Course Hospital course: Madeline Mcneil 80year old lady past medical history of hypertension, hyperlipidemia and multiple strokes who presented to the ER from home due to clogged G-tube. The patient had initially presented to the hospital 12/01/2020 and was treated at [facility] for acute CVA with left-sided facial droop, aphasia and left-sided weakness. Her MRI demonstrated likely cardio embolic right frontal lobe acute to subacute CVAs. Her echo at that time demonstrated a PFO. The patient received tPA. The patient was noted to have evidence of aspiration and had a G-tube placed 12/07/2020. The patient was discharged from [facility] and placed in acute rehab 12/13/2020. While in acute rehab patient had some continued abdominal pain. GI was consulted and a Gastrografin study was performed demonstrating G-tube was appropriately position. There was a small amount of free air that was thought to be due to the initial placement of the G-tube. The patient's abdominal pain eventually resolved. The patient continued to have evidence of aspiration on repeat modified barium swallow and G-tube feeds were continued. The patient was discharged home on G-tube feeds with Osmolite 1.52 cc every 4 hours 5 times a day with 80 mL free water flushes. She was discharged from acute rehab 12/22/2020. On 12/23/2020 when feeds were attempted the patient's G-tube was clogged. The patient was brought in to the ER for evaluation. The patient reports pain at G-tube site. Pt seen by surgeon here, advised not to use G tube. Pt can be transferred today to [facility] To Dr Lewis. Time Spent with Patient Time attestation: Total time spent providing and/or coordinating transfer services: 40 minutes on day of discharge Exam Narrative: Exam Narrative: GENERAL: No acute distress, well-developed well-nourished HEENT: Dry mucous membranes, lips are peeling, pupils are equal and reactive, head is normocephalic atraumatic, facial asymmetry
== END 2020-12-24 21:25 | disposition short-term general hospital (02) | DRG 871 ==
LOC: ANHED 12-24 01:10 → ANH2MED 12-24 01:54
PROVIDERS: Emergency Medicine; Admitting Provider Internal Medicine; Emergency Provider Emergency Medicine; PCP Internal Medicine; Visit Provider Family Medicine
DX: A41.9 Sepsis, unspecified organism (principal); K65.1 Peritoneal abscess; K94.23 Gastrostomy malfunction; R82.71 Bacteriuria; R82.81 Pyuria; Z20.822 Contact with and (suspected) exposure to COVID-19; I69.920 Aphasia following unspecified cerebrovascular disease; I12.9 Hypertensive chronic kidney disease with stage 1 through stage 4 chronic kidney disease, or unspecified chronic kidney disease; N18.30 Chronic kidney disease, stage 3 unspecified; E78.5 Hyperlipidemia, unspecified; Z79.82 Long term (current) use of aspirin; Z79.899 Other long term (current) drug therapy
CPT/HCPCS: 36415; 71046; 74177; 80053; 81001; 83605; 85025; 85610; 85730; 86140; 87040; 87077; 87086; 87088; 87186; 87426; 96361; 96365; 96366; 96367; 96375; 99285; A9270; C9803; G0378; J0131; J1956; J2405; J3370; J7030; Q9967

== ENCOUNTER 2022-02-24 13:07 | Emergency (ER) | payer MEDICARE, SELFPAY ==
[2022-02-24 13:28] VITALS: BP 130/55; PULSE 65; RESP 18; TEMP 36.6; O2SAT 98
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
[2022-02-24] MEDS: TETANUS/DIPHTHERIA TOXOIDS ADSORB 0.5 ML VIAL (*BKC) IM (14:16)
== END 2022-02-24 14:18 | disposition home or self-care (01) ==
PROVIDERS: Emergency Provider Nurse Practitioner
DX: L53.9 Erythematous condition, unspecified (principal); Z23 Encounter for immunization; Z86.73 Personal history of transient ischemic attack (TIA), and cerebral infarction without residual deficits; I12.9 Hypertensive chronic kidney disease with stage 1 through stage 4 chronic kidney disease, or unspecified chronic kidney disease; N18.30 Chronic kidney disease, stage 3 unspecified; M48.00 Spinal stenosis, site unspecified; E21.3 Hyperparathyroidism, unspecified
CPT/HCPCS: 90471; 90714; 99212; G0463